=== PATIENT | female | born 1965 | race Two or more races ===

== ENCOUNTER 2024-08-31 01:39 | Day surgery (SDC) | payer BC, SELFPAY ==
[2024-08-28 08:33] VITALS: BMI 27.4
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
--- OUTSIDE RECORDS SUMMARY | 2024-08-31 01:43 | XMS_ITS | Clinical Summary ---
Author Organization [facility] Address [address] [place] [address] Care Team Providers Care Second Cutter Name Role Phone Jillian Vyas PA-C Primary Care Provider [phone] Allergies Active Allergy Reactions Criticality Noted Date Comments Prochlorperazine Other (see comment) 06/10/2020 Muscle tightness Medications gabapentin 100 MG capsule Take 100-300 mg by mouth daily. 05/27/19 21 Active venlafaxine XR 75 MG 24 hr capsule Take 75 mg by mouth daily. 05/06/19 21 Active sucralfate 1 G tablet Take 1 tablet (1 g total) by mouth 4 (four) times daily. 120 tablet 06/11/19 21 Active nirmatrelvir & ritonavir 300/100 (PAXLOVID, 300/100,) 20 x 150 MG & 10 x 100MG tablet pack Take TWO nirmatrelvir 150 mg tablet(s) along with ONE ritonavir 100 mg tablet, with all three tablets taken together, twice daily for 5 days. May take with or without food. Swallow tablets whole. Do not chew, break or crush.. 30 tablet 12/15/19 22 Active hydrOXYzine (ATARAX) 25 MG tablet Take 25 mg by mouth 3 (three) times daily as needed for Itching or Anxiety. 09/25/19 22 Active pantoprazole EC (PROTONIX) 40 MG tablet Take 40 mg by mouth daily. 12/15/19 22 Active butalbital-acetami nophen-caffeine (FIORICET) 50-300-40 MG capsule Take 1-2 capsules by mouth every 6 (six) hours as needed for Headaches. 28 capsule 12/21/19 22 Active ondansetron (ZOFRAN-ODT) 4 MG disintegrating tablet Take 1 tablet (4 mg total) by mouth every 4 (four) hours as needed for Nausea. 20 tablet 12/21/19 Active dextromethorphan ER (DELSYM) 30 MG/5ML liquid Take 5 mLs (30 mg total) by mouth every 12 (twelve) hours as needed (Cough and/or sore throat). 280 mL 12/21/19 Active diclofenac EC (VOLTAREN) 75 MG tablet Take 1 tablet (75 mg total) by mouth 2 (two) times daily as needed (Pain. Please take with meals). 30 tablet 12/21/19 Active Social History Tobacco Use Types Packs/Day Years Used Date Smoking Tobacco: Never Smokeless Tobacco: Never Alcohol Use Standard Drinks/Week Comments Not Currently 0 (1 standard drink = 0.6 oz pur e alcohol) Comments No Sex and Gender Information Value Date Recorded Sex Assigned at Not on file Legal Sex Female 8:00 PM CDT Gender Identity Not on file Sexual Orientation Not on file Last Filed Vital Signs Vital Sign Reading Time Taken Comments Blood Pressure 110/82 12/20/2021 3:00 AM CDT Pulse 77 12/20/2021 3:00 AM CDT Temperature 36.7 C (98 F) 12/20/2021 3:00 AM CDT Respiratory Rate 17 12/20/2021 3:00 AM CDT Oxygen Saturation 97% 12/20/2021 3:00 AM CDT Inhaled Oxygen Concentration - - Weight 70.3 kg (155 lb) 12/19/2021 7:36 PM CDT Height 157.5 cm (5' 2 ) 12/19/2021 7:36 PM CDT Body Mass Index 28.35 12/19/2021 7:36 PM CDT Plan of Treatment Health Maintenance Due Date Last Done Comments Cervical Cancer Screening Pa p Smear (Age 30 to 64) Every 3 Years 1967 Colorectal Cancer Screening Colonoscopy (10 Years) 1967 Annual Physical 12/14/1970 Hepatitis C 12/14/1985 DTaP, Tdap and Td Vaccines ( 1 - Tdap) 12/14/1986 Hepatitis B Vaccines (1 of 3 - 19+ 3-dose series) 12/14/1986 Cervical Cancer Screening Pa p with HPV Testing (Age 30 to 64) Every 5 Years 12/14/1997 Cervical Cancer Screening wi th HPV 12/14/1997 Mammogram Screening 2007 Pneumococcal Vaccine: 50+ Years (1 of 1 - PCV) 12/14/2017 Zoster Vaccines (1 of 2) 12/14/2017 COVID-19 Vaccine (3 - 2023-2 5 season) 2024 05/09/2020, 04/18/2020 Meningococcal B Vaccine Aged Out No l onger eligible based on patient's age to complete this topic Meningococcal Vaccine Aged Out No paula joseph eligible based on patient's age to complete this topic RSV Immunizations Under 20 Months Aged Out No longer eligible b ased on patient's age to complete this topic Insurance [facility] Care Teams Second Cutter Relationship Specialty Start Date End Date Jillian Vyas PA-C [address] [place] [id number] PCP - General NURSE PRACTITIONER 06/10/20
--- OUTSIDE RECORDS SUMMARY | 2024-08-31 01:43 | XMS_ITS | Data Portability ---
Author Organization [facility] Lary Funk Address [address] [place] [address] Care Team Providers Care Senior Customer Service Representative Name Role Phone GENTRYCYNTHIA FANG Primary Care Provider [phone] Assessment No assessment recorded. Plan of Treatment Reminders Order Date Submit Date Provider Last Modified By Organization Details Last Modified Time Details Appointments None recorded. Lab CMP, serum or plasma 2023 024 CHARLIE Lees, [address], [place], [address], 4 11:14:50 CBC w/ auto diff 2023 024 CHARLIE Lees, [address], [place], [address], 4 11:14:53 lipid panel, serum 2023 024 CHARLIE Lees, [address], [place], [address], 4 11:14:49 HbA1c (hemoglobin A1c), blood 2023 024 CHARLIE Lees, [address], [place], [address], 4 11:14:52 TSH + free T4, serum 2023 024 CHARLIE Lees, [address], [place], [address], 4 11:14:48 rapid strep group A, throat 2023 024 [email or web address] In-Office Order, Internal Use Only DO Not Attach Compendium DO Not Attach Compendium, Do Not Delete/merge, [id number] 4 17:30:48 vitamin B12 + folate, serum or blood [email or web address], [address], [address], [place], [address], 3 17:34:43 estradiol, serum 2022 023 [facility], [address], [place], [address], 3 17:35:30 lh + FSH, serum 2022 023 [facility], [address], [address], [place], [address], 3 17:35:31 progesteron e, serum 2022 023 [facility], [address], [place], [address], 3 17:35:31 prolactin, serum 2022 023 [facility], [address], [place], [address], 3 17:35:30 LINDA (antinuclea r antibodies) screen, serum 2022 023 [facility], [address], [place], [address], 3 17:35:30 vitamin B12 + folate, serum or blood 2021 022 [facility], [address], [place], [address], 09:32:06 CBC w/ auto diff 2021 [facility], [address], [place], [address], 09:32:04 PT/PTT, plasma 2021 [facility], [address], [place], [address], 09:32:06 iron + total iron-bindin g capacity (TIBC), serum 2021 [facility], [address], [place], [address], 09:37:54 HbA1c (hemoglobin A1c), blood 2021 [facility], [address], [place], [address], 09:32:07 CMP, serum or plasma 2021 [facility], [address], [place], [address], 09:32:05 Referral None recorded. Procedures None recorded. Surgeries None recorded. Imaging MAMMO, screening, bilateral [address] [place], [address] [address], [place], [address], 07:38:22 CT, coronary calcium score [address] Imaging [place], [address] [address], [place], [address], 5 08:00:52 MAMMO, screening, bilateral 2022 023 [facility] ing, [address], [place], [address], 3 17:43:45 XR, elbow, 2 view 2021 022 [facility] [address] [place], [address], 2 16:17:11 Medication Orders Zepbound 2.5 mg/0.5 mL subcutaneou s pen injector 2023 024 [facility]88198, [address], [place], [id number], 4 07:35:39 Zithromax Z-Bob 250 mg tablet [address] [facility]12742, [address], [place], [id number], 4 16:38:09 acetaminoph en 300 mg-codeine 30 mg tablet 2023 024 [facility] #17196, [address], [place], [id number], 4 17:35:55 alprazolam 0.25 mg tablet [address] [facility]57812, [address], [place], [id number], 2 08:42:04 hydroxyzine HCl 25 mg tablet [address] [facility] #54713, [address], [place], [id number], 4 16:50:43 permethrin 5 % topical cream 2021 022 [email or web address] [facility] #35050, [address] , [place], [place], [id number], 17:52:58 Patient TargetsNo targets recorded. Patient Instructions Encounter Date Encounter Id Patient Instructions Last Modified By Organization Details Last Modified Time 09/24/2021 [id number] elbow bursitis: exercises Not available 09/24/2021 17:45:39 04/04/2024 [id number] A healthy lifestyle: care instructions Not available 04/04/2024 17:14:37 Reason for Referral None Reported. Results Created Date Observation Date Name Description Value Unit Range Abnormal Flag Note LastModifiedBy Organization Detail LastModifiedTime 09/26/19 22 10/02/2021 CBC WITH DIFFE RENTI AL/PL ATELE T WBC TNP x10e3 /uL Test not perfo rmed. Speci men could not be locat ed. Conta cted Pablo Regan, Nurse , at your [facility] 2 Not Available [facility] ([facility]) [address] [place], [address], 10/02/2021 09:32:04 09/26/19 22 10/02/2021 CBC WITH DIFFE RENTI AL/PL ATELE T RBC TNP Test not perfo rmed Not Available [facility] ([facility]) [address] [place], [address], 10/02/2021 09:32:04 09/26/19 22 10/02/2021 CBC WITH DIFFE RENTI AL/PL ATELE T hemoglobin TNP Test not perfo rmed Not Available [facility] ([facility]) [address] [place], [address], 10/02/2021 09:32:04 09/26/19 22 10/02/2021 CBC WITH DIFFE RENTI AL/PL ATELE T hematocrit TNP Test not perfo rmed Not Available [facility] ([facility]) [address] [place], [address], 10/02/2021 09:32:04 09/26/19 22 10/02/2021 CBC WITH DIFFE RENTI AL/PL ATELE T MCV FINANCIAL ANALYST ACCOUNTANT Not Available [facility] ([facility]) [address] [facility], [place], [address], 10/02/2021 09:32:04 09/26/19 22 10/02/2021 CBC WITH DIFFE RENTI AL/PL ATELE T MCH FINANCIAL ANALYST ACCOUNTANT Not Available [facility] ([facility]) [address] [facility], [place], [address], 10/02/2021 09:32:04 09/26/19 22 10/02/2021 CBC WITH DIFFE RENTI AL/PL ATELE T MCHC FINANCIAL ANALYST ACCOUNTANT Not Available [facility] ([facility]) [address] [facility], [place], [address], 10/02/2021 09:32:04 09/26/19 22 10/02/2021 CBC WITH DIFFE RENTI AL/PL ATELE T RDW FINANCIAL ANALYST ACCOUNTANT Not Available [facility] ([facility]) [address] [facility], [place], [address], 10/02/2021 09:32:04 09/26/19 22 10/02/2021 CBC WITH DIFFE RENTI AL/PL ATELE T platelets TNP Test not perfo rmed Not Available [facility] ([facility]) [address] [facility], [place], [address], 10/02/2021 09:32:04 09/26/19 22 10/02/2021 CBC WITH DIFFE RENTI AL/PL ATELE T neutrophils TNP Test not perfo rmed Not Available [facility] ([facility]) [address] [facility], [place], [address], 10/02/2021 09:32:04 09/26/19 22 10/02/2021 CBC WITH DIFFE RENTI AL/PL ATELE T lymphs TNP Test not perfo rmed Not Available [facility] ([facility]) [address] [place], [address], 10/02/2021 09:32:04 09/26/19 22 10/02/2021 CBC WITH DIFFE RENTI AL/PL ATELE T monocytes TNP Test not perfo rmed Not Available [facility] ([facility]) [address] [facility], [place], [address], 10/02/2021 09:32:04 09/26/19 22 10/02/2021 CBC WITH DIFFE RENTI AL/PL ATELE T eos TNP Test not perfo rmed Not Available [facility] ([facility]) [address] [place], [address], 10/02/2021 09:32:04 09/26/19 22 10/02/2021 CBC WITH DIFFE RENTI AL/PL ATELE T basos FINANCIAL ANALYST ACCOUNTANT Not Available [facility] ([facility]) [address] [place], [address], 10/02/2021 09:32:04 09/26/19 22 10/02/2021 CBC WITH DIFFE RENTI AL/PL ATELE T immature cells FINANCIAL ANALYST ACCOUNTANT Not Available [facility] ([facility]) [address] [place], [address], 10/02/2021 09:32:04 09/26/19 22 10/02/2021 CBC WITH DIFFE RENTI AL/PL ATELE T neutrophils (absolute) FINANCIAL ANALYST ACCOUNTANT Not Available [facility] ([facility]) [address] [place], [address], 10/02/2021 09:32:04 09/26/19 22 10/02/2021 CBC WITH DIFFE RENTI AL/PL ATELE T lymphs (absolute) TNP Test not perfo rmed Not Available [facility] ([facility]) [address] [place], [address], 10/02/2021 09:32:04 09/26/19 22 10/02/2021 CBC WITH DIFFE RENTI AL/PL ATELE T monocytes(ab solute) FINANCIAL ANALYST ACCOUNTANT Not Available [facility] ([facility]) [address] [facility], [place], [address], 10/02/2021 09:32:04 09/26/19 22 10/02/2021 CBC WITH DIFFE RENTI AL/PL ATELE T eos (absolute) TNP Test not perfo rmed Not Available [facility] ([facility]) [address] [place], [address], 10/02/2021 09:32:04 09/26/19 22 10/02/2021 CBC WITH DIFFE RENTI AL/PL ATELE T baso (absolute) TNP Test not perfo rmed Not Available [facility] ([facility]) [address] [place], [address], 10/02/2021 09:32:04 09/26/19 22 10/02/2021 CBC WITH DIFFE RENTI AL/PL ATELE T immature granulocytes FINANCIAL ANALYST ACCOUNTANT Not Available [facility] ([facility]) [address] [place], [address], 10/02/2021 09:32:04 09/26/19 22 10/02/2021 CBC WITH DIFFE RENTI AL/PL ATELE T immature grans (abs) FINANCIAL ANALYST ACCOUNTANT Not Available [facility]) [address] [place], [address], 10/02/2021 09:32:04 09/26/19 22 10/02/2021 CBC WITH DIFFE RENTI AL/PL ATELE T NRBC FINANCIAL ANALYST ACCOUNTANT Not Available [facility] ([facility]) [address] [place], [address], 10/02/2021 09:32:04 09/26/19 22 10/02/2021 CBC WITH DIFFE RENTI AL/PL CARMEN Song hematology comments: FINANCIAL ANALYST ACCOUNTANT Not Available [facility] ([facility]) [address] [facility], [place], [address], 10/02/2021 09:32:04 09/26/19 22 10/02/2021 COMP. METAB OLIC PANEL (14) glucose TNP mg/dL Test not perfo rmed. Speci men could not be locat ed. Conta cted Pablo Regan, Nurse , at your [facility] it 2 Not Available [facility] ([facility]) [address] [facility], [place], [address], 10/02/2021 09:32:05 09/26/19 22 10/02/2021 COMP. METAB OLIC PANEL (14) BUN TNP Test not perfo rmed Not Available [facility] ([facility]) [address] [facility], [place], [address], 10/02/2021 09:32:05 09/26/19 22 10/02/2021 COMP. METAB OLIC PANEL (14) creatinine TNP Test not perfo rmed Not Available [facility] ([facility]) [address] [facility], [place], [address], 10/02/2021 09:32:05 09/26/19 22 10/02/2021 COMP. METAB OLIC PANEL (14) eGFR FINANCIAL ANALYST ACCOUNTANT Not Available [facility] ([facility]) [address] [place], [address], 10/02/2021 09:32:05 09/26/19 22 10/02/2021 COMP. METAB OLIC PANEL (14) BUN/creatini ne ratio FINANCIAL ANALYST ACCOUNTANT Not Available [facility] ([facility]) [address] [place], [address], 10/02/2021 09:32:05 09/26/19 22 10/02/2021 COMP. METAB OLIC PANEL (14) sodium TNP Test not perfo rmed Not Available [facility] ([facility]) [address], [place], [address], 10/02/2021 09:32:05 09/26/19 22 10/02/2021 COMP. METAB OLIC PANEL (14) potassium TNP Test not perfo rmed Not Available [facility] ([facility]) [address], [place], [address], 10/02/2021 09:32:05 09/26/19 22 10/02/2021 COMP. METAB OLIC PANEL (14) chloride TNP Test not perfo rmed Not Available [facility] ([facility]) [address], [place], [address], 10/02/2021 09:32:05 09/26/19 22 10/02/2021 COMP. METAB OLIC PANEL (14) carbon dioxide, total TNP Test not perfo rmed Not Available [facility] ([facility]) [address], [place], [address], 10/02/2021 09:32:05 09/26/19 22 10/02/2021 COMP. METAB OLIC PANEL (14) calcium TNP Test not perfo rmed Not Available [facility] ([facility]) [address], [place], [address], 10/02/2021 09:32:05 09/26/19 22 10/02/2021 COMP. METAB OLIC PANEL (14) protein, total TNP Test not perfo rmed Not Available [facility] ([facility]) [address], [place], [address], 10/02/2021 09:32:05 09/26/19 22 10/02/2021 COMP. METAB OLIC PANEL (14) albumin TNP Test not perfo rmed Not Available [facility] ([facility]) [address], [place], [address], 10/02/2021 09:32:05 09/26/19 22 10/02/2021 COMP. METAB OLIC PANEL (14) globulin, total FINANCIAL ANALYST ACCOUNTANT Not Available [facility] ([facility]) [address] [facility] [place], [address], 10/02/2021 09:32:05 09/26/19 22 10/02/2021 COMP. METAB OLIC PANEL (14) A/G ratio FINANCIAL ANALYST ACCOUNTANT Not Available [facility] ([facility]) [address] [facility], [place], [address], 10/02/2021 09:32:05 09/26/19 22 10/02/2021 COMP. METAB OLIC PANEL (14) bilirubin, total TNP Test not perfo rmed Not Available [facility] ([facility]) [address] [facility], [place], [address], 10/02/2021 09:32:05 09/26/19 22 10/02/2021 COMP. METAB OLIC PANEL (14) alkaline phosphatase TNP Test not perfo rmed Not Available [facility] ([facility]) [address] [facility] [place], [address], 10/02/2021 09:32:05 09/26/19 22 10/02/2021 COMP. METAB OLIC PANEL (14) AST (SGOT) TNP Test not perfo rmed Not Available [facility] ([facility]) [address] [place], [address], 10/02/2021 09:32:05 09/26/19 22 10/02/2021 COMP. METAB OLIC PANEL (14) ALT (SGPT) TNP Test not perfo rmed Not Available [facility] ([facility]) [address] [facility] [place], [address], 10/02/2021 09:32:05 09/26/19 22 10/02/2021 PT AND PTT INR TNP Test not perfo rmed. Speci men could not be locat ed. Conta cted Pablo M., Nurse , at your facil ity 2 Refer ence inter marilyn is for non-a ntico agula avery patie nts. Sugge sted INR thera peuti c range for Vitam in K antag onist thera py: Stand manpreet Dose (mode rate inten sity thera peuti c range ): 2.0 - 3.0 Highe r inten sity thera peuti c range 2.5 - 3.5 Not Available [facility] ([facility]) [address] [facility], [place], [address], 10/02/2021 09:32:06 09/26/19 22 10/02/2021 PT AND PTT prothrombin time TNP Test not perfo rmed Not Available [facility] ([facility]) [address] [facility], [place], [address], 10/02/2021 09:32:06 09/26/19 22 10/02/2021 PT AND PTT APTT TNP Test not perfo rmed Not Available [facility] ([facility]) [address] [facility], [place], [address], 10/02/2021 09:32:06 09/26/19 22 10/02/2021 VITAM IN B12 AND FOLAT E vitamin B12 TNP pg/mL Test not perfo rmed. Speci men could not be locat ed. Lupe Regan, Nurse , at your facil ity 2 Not Available [facility] ([facility]) [address] [facility], [place], [address], 10/02/2021 09:32:06 09/26/19 22 10/02/2021 VITAM IN B12 AND FOLAT E folate (folic acid), serum TNP Test not perfo rmed Not Available [facility] ([facility]) [address] [place], [address], 10/02/2021 09:32:06 09/26/19 22 10/02/2021 HEMOG LOBIN A1C hemoglobin A1C TNP % Test not perfo rmed. Speci men could not be locat ed. Lupe Regan, Nurse , at your facil ity 2 Predi abete s: 5.7 - 6.4 Diabe mary kay: >6.4 Glyce ghassan contr ol for adult s with diabe mary kay: <7.0 Not Available [facility] ([facility]) [address] [facility], [place], [address], 10/02/2021 09:32:07 09/26/19 22 10/02/2021 SPECI MEN STATU S REPOR T specimen status report TNP Test not perfo rmed. Speci men could not be locat ed. TEST: [id number] CBC With Diffe renti al/Pl [place]ele t 0[address] 0 Comp. Metab olic Panel (14) 40388 1 Iron and TIBC 13503 1 PT and PTT 41496 0 Vitam in B12 [place] Folat e 49819 3 Hemog lobin A1c Ramóna tanner Regan, Nurse , at your facil ity 2 Not Available [facility] ([facility]) [address] [facility], [place], [address], 10/02/2021 09:32:08 10/03/19 22 10/03/2021 CBC WITH DIFFE RENTI AL/PL ATELE T WBC 6.6 x10e3 /uL 3.4-10 .8 Not Available [facility] ([facility]) [address] [facility], [place], [address], 10/03/2021 09:37:53 10/03/19 22 10/03/2021 CBC WITH DIFFE RENTI AL/PL ATELE T RBC 4.99 x10e6 /uL 3.77-5 .28 Not Available [facility] ([facility]) [address] [facility], [place], [address], 10/03/2021 09:37:53 10/03/19 22 10/03/2021 CBC WITH DIFFE RENTI AL/PL ATELE T hemoglobin 14.3 g/dL 11.1-1 5.9 Not Available [facility] ([facility]) [address] [place], [address], 10/03/2021 09:37:53 10/03/19 22 10/03/2021 CBC WITH DIFFE RENTI AL/PL ATELE T hematocrit 42.7 % 34.0-4 6.6 Not Available [facility] ([facility]) [address] [place], [address], 10/03/2021 09:37:53 10/03/19 22 10/03/2021 CBC WITH DIFFE RENTI AL/PL ATELE T MCV 86 fL 79-97 Not Available [facility] ([facility]) [address] [place], [address], 10/03/2021 09:37:53 10/03/19 22 10/03/2021 CBC WITH DIFFE RENTI AL/PL ATELE T MCH 28.7 pg 26.6-3 3.0 Not Available [facility] ([facility]) [address] [place], [address], 10/03/2021 09:37:53 10/03/19 22 10/03/2021 CBC WITH DIFFE RENTI AL/PL ATELE T MCHC 33.5 g/dL 31.5-3 5.7 Not Available [facility] ([facility]) [address] [place], [address], 10/03/2021 09:37:53 10/03/19 22 10/03/2021 CBC WITH DIFFE RENTI AL/PL ATELE T RDW 12.7 % 11.7-1 5.4 Not Available [facility] ([facility]) [address] [place], [address], 10/03/2021 09:37:53 10/03/19 22 10/03/2021 CBC WITH DIFFE RENTI AL/PL ATELE T platelets 239 x10e3 /uL 150-45 0 Not Available [facility] ([facility]) [address] [facility], [place], [address], 10/03/2021 09:37:53 10/03/19 22 10/03/2021 CBC WITH DIFFE RENTI AL/PL ATELE T neutrophils 50 % not estab. Not Available [facility] ([facility]) [address] [facility], [place], [address], 10/03/2021 09:37:53 10/03/19 22 10/03/2021 CBC WITH DIFFE RENTI AL/PL ATELE T lymphs 43 % not estab. Not Available [facility] ([facility]) [address] [facility], [place], [address], 10/03/2021 09:37:53 10/03/19 22 10/03/2021 CBC WITH DIFFE RENTI AL/PL ATELE T monocytes 5 % not estab. Not Available [facility] ([facility]) [address] [facility], [place], [address], 10/03/2021 09:37:53 10/03/19 22 10/03/2021 CBC WITH DIFFE RENTI AL/PL ATELE T eos 1 % not estab. Not Available [facility] ([facility]) [address] [facility], [place], [address], 10/03/2021 09:37:53 10/03/19 22 10/03/2021 CBC WITH DIFFE RENTI AL/PL ATELE T basos 1 % not estab. Not Available [facility] ([facility]) [address] [place], [address], 10/03/2021 09:37:53 10/03/19 22 10/03/2021 CBC WITH DIFFE RENTI AL/PL ATELE T immature cells FINANCIAL ANALYST ACCOUNTANT Not Available [facility] ([facility]) [address] [facility], [place], [address], 10/03/2021 09:37:53 10/03/19 22 10/03/2021 CBC WITH DIFFE RENTI AL/PL ATELE T neutrophils (absolute) 3.3 x10e3 /uL 1.4-7. 0 Not Available [facility] ([facility]) [address] [facility], [place], [address], 10/03/2021 09:37:53 10/03/19 22 10/03/2021 CBC WITH DIFFE RENTI AL/PL ATELE T lymphs (absolute) 2.8 x10e3 /uL 0.7-3. 1 Not Available [facility] ([facility]) [address] [facility], [place], [address], 10/03/2021 09:37:53 10/03/19 22 10/03/2021 CBC WITH DIFFE RENTI AL/PL ATELE T monocytes(ab solute) 0.3 x10e3 /uL 0.1-0. 9 Not Available [facility] ([facility]) [address] [facility], [place], [address], 10/03/2021 09:37:53 10/03/19 22 10/03/2021 CBC WITH DIFFE RENTI AL/PL ATELE T eos (absolute) 0.1 x10e3 /uL 0.0-0. 4 Not Available [facility] ([facility]) [address] [facility], [place], [address], 10/03/2021 09:37:53 10/03/19 22 10/03/2021 CBC WITH DIFFE RENTI AL/PL ATELE T baso (absolute) 0.1 x10e3 /uL 0.0-0. 2 Not Available [facility] ([facility]) [address] [place], [address], 10/03/2021 09:37:53 10/03/19 22 10/03/2021 CBC WITH DIFFE RENTI AL/PL ATELE T immature granulocytes 0 % not estab. Not Available [facility] ([facility]) [address] [facility], [place], [address], 10/03/2021 09:37:53 10/03/19 22 10/03/2021 CBC WITH DIFFE RENTI AL/PL ATELE T immature grans (abs) 0.0 x10e3 /uL 0.0-0. 1 Not Available [facility] ([facility]) [address] [facility], [place], [address], 10/03/2021 09:37:53 10/03/19 22 10/03/2021 CBC WITH DIFFE RENTI AL/PL ATELE T NRBC FINANCIAL ANALYST ACCOUNTANT Not Available [facility] ([facility]) [address] [facility], [place], [address], 10/03/2021 09:37:53 10/03/19 22 10/03/2021 CBC WITH DIFFE RENTI AL/PL ATELE T hematology comments: FINANCIAL ANALYST ACCOUNTANT Not Available [facility] ([facility]) [address] [facility], [place], [address], 10/03/2021 09:37:53 10/03/19 22 10/03/2021 COMP. METAB OLIC PANEL (14) glucose 126 mg/dL 65-99 above high normal Not Available [facility] ([facility]) [address] [facility], [place], [address], 10/03/2021 09:37:54 10/03/19 22 10/03/2021 COMP. METAB OLIC PANEL (14) BUN 13 mg/dL 6-24 Not Available [facility] ([facility]) [address] [facility], [place], [address], 10/03/2021 09:37:54 10/03/19 22 10/03/2021 COMP. METAB OLIC PANEL (14) creatinine 0.75 mg/dL 0.57-1 .00 Not Available [facility] ([facility]) [address] [facility], [place], [address], 10/03/2021 09:37:54 10/03/19 22 10/03/2021 COMP. METAB OLIC PANEL (14) eGFR 95 mL/mi n/1.7 3 >59 Not Available [facility] ([facility]) [address] [facility], [place], [address], 10/03/2021 09:37:54 10/03/19 22 10/03/2021 COMP. METAB OLIC PANEL (14) BUN/creatini ne ratio 17 9-23 Not Available [facility] ([facility]) [address] [facility], [place], [address], 10/03/2021 09:37:54 10/03/19 22 10/03/2021 COMP. METAB OLIC PANEL (14) sodium 142 mmol/ L 134-14 4 Not Available [facility] ([facility]) [address] [place], [address], 10/03/2021 09:37:54 10/03/19 22 10/03/2021 COMP. METAB OLIC PANEL (14) potassium 4.2 mmol/ L 3.5-5. 2 Not Available [facility] ([facility]) [address] [facility], [place], [address], 10/03/2021 09:37:54 10/03/19 22 10/03/2021 COMP. METAB OLIC PANEL (14) chloride 105 mmol/ L 96-106 Not Available [facility] ([facility]) [address] [place], [address], 10/03/2021 09:37:54 10/03/19 22 10/03/2021 COMP. METAB OLIC PANEL (14) carbon dioxide, total 24 mmol/ L 20-29 Not Available [facility] ([facility]) [address] [place], [address], 10/03/2021 09:37:54 10/03/19 22 10/03/2021 COMP. METAB OLIC PANEL (14) calcium 9.5 mg/dL 8.7-10 .2 Not Available [facility] ([facility]) [address] [facility] [place], [address], 10/03/2021 09:37:54 10/03/19 22 10/03/2021 COMP. METAB OLIC PANEL (14) protein, total 7.5 g/dL 6.0-8. 5 Not Available [facility] ([facility]) [address] [facility] [place], [address], 10/03/2021 09:37:54 10/03/19 22 10/03/2021 COMP. METAB OLIC PANEL (14) albumin 4.7 g/dL 3.8-4. 9 Not Available [facility] ([facility]) [address] [place], [address], 10/03/2021 09:37:54 10/03/19 22 10/03/2021 COMP. METAB OLIC PANEL (14) globulin, total 2.8 g/dL 1.5-4. 5 Not Available [facility] ([facility]) [address] [facility] [place], [address], 10/03/2021 09:37:54 10/03/19 22 10/03/2021 COMP. METAB OLIC PANEL (14) A/G ratio 1.7 1.2-2. 2 Not Available [facility] ([facility]) [address] [facility] [place], [address], 10/03/2021 09:37:54 10/03/19 22 10/03/2021 COMP. METAB OLIC PANEL (14) bilirubin, total 0.2 mg/dL 0.0-1. 2 Not Available [facility] ([facility]) [address] [facility] [place], [address], 10/03/2021 09:37:54 10/03/19 22 10/03/2021 COMP. METAB OLIC PANEL (14) alkaline phosphatase 100 IU/L 44-121 Not Available [facility] ([facility]) [address] [place], [address], 10/03/2021 09:37:54 10/03/19 22 10/03/2021 COMP. METAB OLIC PANEL (14) AST (SGOT) 24 IU/L 0-40 Not Available [facility] ([facility]) [address] [place], [address], 10/03/2021 09:37:54 10/03/19 22 10/03/2021 COMP. METAB OLIC PANEL (14) ALT (SGPT) 32 IU/L 0-32 Not Available [facility] ([facility]) [address] [place], [address], 10/03/2021 09:37:54 10/03/19 22 10/03/2021 IRON AND TIBC iron bind.cap.(TI BC) 387 ug/dL 250-45 0 Not Available [facility] ([facility]) [address] [place], [address], 10/03/2021 09:37:54 10/03/19 22 10/03/2021 IRON AND TIBC UIBC 318 ug/dL 131-42 5 Not Available [facility] ([facility]) [address] [place], [address], 10/03/2021 09:37:54 10/03/19 22 10/03/2021 IRON AND TIBC iron 69 ug/dL 27-159 Not Available [facility] ([facility]) [address] [place], [address], 10/03/2021 09:37:54 10/03/19 22 10/03/2021 IRON AND TIBC iron saturation 18 % 15-55 Not Available [facility] ([facility]) [address] [place], [address], 10/03/2021 09:37:54 10/03/19 22 10/03/2021 PT AND PTT INR 0.9 0.9-1. 2 Refer ence inter marilyn is for non-a ntico agula avery patie nts. Sugge sted INR thera peuti c range for Vitam in K antag onist thera py: Stand manpreet Dose (mode rate inten sity thera peuti c range ): 2.0 - 3.0 Highe r inten sity thera peuti c range 2.5 - 3.5 Not Available [facility] ([facility]) [address] [place], [address], 10/03/2021 09:37:55 10/03/19 22 10/03/2021 PT AND PTT prothrombin time 9.9 sec 9.1-12 .0 Not Available [facility] ([facility]) [address] [place], [address], 10/03/2021 09:37:55 10/03/19 22 10/03/2021 PT AND PTT APTT 40 sec 24-33 above high normal This test has not been valid ated for monit oring unfra ction ated hepar in thera py. aPTT- based thera peuti c range s for unfra ction ated hepar in thera py have not been estab michelle Butler gener al guide lines on Hepar in monit oring , refer to the [facility] Anu snowden of Nomi alvarado. Not Available [facility] ([facility]) [address] [place], [address], 10/03/2021 09:37:55 10/03/19 22 10/03/2021 VITAM IN B12 AND FOLAT E vitamin B12 349 pg/mL 232-12 45 Not Available [facility] ([facility]) [address] [place], [address], 10/03/2021 09:37:55 10/03/19 22 10/03/2021 VITAM IN B12 AND FOLAT E folate (folic acid), serum 11.5 NG/mL >3.0 A serum folat e tirso ntrat ion of less than 3.1 ng/mL is consi dered to repre sent clini heraclio defic iency . Not Available [facility] ([facility]) [address] [facility] [address], [place], [address], 10/03/2021 09:37:55 10/03/19 22 10/03/2021 HEMOG LOBIN A1C hemoglobin A1C 5.8 % 4.8-5. 6 above high normal Predi abete s: 5.7 - 6.4 Diabe mary kay: >6.4 Glyce ghassan contr ol for adult s with diabe mary kay: <7.0 Not Available [facility] ([facility]) [address] [facility] [address], [place], [address], 10/03/2021 09:37:56 12/24/19 23 12/24/2022 LIPID PANEL cholesterol, total 197 mg/dL 100-19 9 Not Available [facility] [address] [place], [address], 12/24/2022 18:11:23 12/24/19 23 12/24/2022 LIPID PANEL triglyceride s 92 mg/dL 0-149 Not Available [facility] [address] [place], [address], 12/24/2022 18:11:23 12/24/19 23 12/24/2022 LIPID PANEL HDL cholesterol 69 mg/dL 40-999 Not Available [facility] [address] [place], [address], 12/24/2022 18:11:23 12/24/19 23 12/24/2022 LIPID PANEL VLDL cholesterol heraclio 18 mg/dL 5-40 Not Available [facility] [address] [place], [address], 12/24/2022 18:11:23 12/24/19 23 12/24/2022 LIPID PANEL LDL chol calc ([facility]) 122 mg/dL 0-99 above high normal Not Available [facility] [address] [place], [address], 12/24/2022 18:11:23 12/24/19 23 12/24/2022 COMP. METAB OLIC PANEL (14) glucose 115 mg/dL 70-99 above high normal Not Available [facility] [address] [place], [address], 12/24/2022 18:11:23 12/24/19 23 12/24/2022 COMP. METAB OLIC PANEL (14) BUN 13 mg/dL 6-24 Not Available [facility] [address] [place], [address], 12/24/2022 18:11:23 12/24/19 23 12/24/2022 COMP. METAB OLIC PANEL (14) creatinine 0.67 mg/dL 0.76-1 .27 below low normal Not Available [facility] [address] [place] [address], [address], 12/24/2022 18:11:23 12/24/19 23 12/24/2022 COMP. METAB OLIC PANEL (14) eGFR 103 >=60 Units for eGFR value s are mL/mi n/1.7 3 The eGFR Calcu latio n has not been valid ated for patie nts under the age of 18. If test resul ts are displ ayed for a patie nt under the age of 18, disre willow that value . Not Available [facility] [address] [place], [address], 12/24/2022 18:11:23 12/24/19 23 12/24/2022 COMP. METAB OLIC PANEL (14) BUN/creatini ne ratio 19 - Not Available [facility] [address] [place], [address], 12/24/2022 18:11:23 12/24/19 23 12/24/2022 COMP. METAB OLIC PANEL (14) sodium 139 mmol/ L 134-14 4 Not Available [facility] [address] [place], [address], 12/24/2022 18:11:23 12/24/19 23 12/24/2022 COMP. METAB OLIC PANEL (14) potassium 4.2 mmol/ L 3.5-5. 2 Not Available [facility] [address] [place], [address], 12/24/2022 18:11:23 12/24/19 23 12/24/2022 COMP. METAB OLIC PANEL (14) chloride 104 mmol/ L 96-106 Not Available [facility] [address] [place], [address], 12/24/2022 18:11:23 12/24/19 23 12/24/2022 COMP. METAB OLIC PANEL (14) carbon dioxide, total 26 mmol/ L 20-29 Not Available [facility] [address] [place], [address], 12/24/2022 18:11:23 12/24/19 23 12/24/2022 COMP. METAB OLIC PANEL (14) calcium 8.8 mg/dL 8.7-10 .2 Not Available [facility] [address] [place], [address], 12/24/2022 18:11:23 12/24/19 23 12/24/2022 COMP. METAB OLIC PANEL (14) protein, total 7.1 g/dL 6.0-8. 5 Not Available [facility] [address] [place], [address], 12/24/2022 18:11:23 12/24/19 23 12/24/2022 COMP. METAB OLIC PANEL (14) albumin 4.4 g/dL 3.8-4. 9 Not Available [facility] [address] [place], [address], 12/24/2022 18:11:23 12/24/19 23 12/24/2022 COMP. METAB OLIC PANEL (14) globulin, total 2.7 g/dL 1.5-4. 5 Not Available [facility] [address] [place], [address], 12/24/2022 18:11:23 12/24/19 23 12/24/2022 COMP. METAB OLIC PANEL (14) A/G ratio 2.0 1.2-2. 2 Not Available [facility] [address] [place] [address], [address], 12/24/2022 18:11:23 12/24/19 23 12/24/2022 COMP. METAB OLIC PANEL (14) bilirubin, total 0.3 mg/dL 0.0-1. 2 Not Available [facility] [address] [place], [address], 12/24/2022 18:11:23 12/24/19 23 12/24/2022 COMP. METAB OLIC PANEL (14) alkaline phosphatase 77 IU/L 44-121 Not Available [facility] [address] [place], [address], 12/24/2022 18:11:23 12/24/19 23 12/24/2022 COMP. METAB OLIC PANEL (14) AST (SGOT) 16 IU/L 0-40 Not Available [facility] Department [address] [place] [address], [address], 12/24/2022 18:11:23 12/24/19 23 12/24/2022 COMP. METAB OLIC PANEL (14) ALT (SGPT) 14 IU/L 0-32 Not Available [facility] Department [address] [place] [address], [address], 12/24/2022 18:11:23 12/25/19 23 12/25/2022 TSH+F REE T4 TSH 0.850 uIU/m L 0.450- 4.500 Not Available [facility] ([facility]) [address] [place], [address], 12/25/2022 08:20:42 12/25/1912/25/2022 TSH+F REE T4 T4,free(dire ct) 1.29 NG/dL 0.82-1 .77 Not Available [facility] ([facility]) [address] [place], [address], 12/25/2022 08:20:42 12/25/1912/25/2022 HEMOG LOBIN A1C hemoglobin A1C 5.7 % 4.8-5. 6 above high normal Predi abete s: 5.7 - 6.4 Diabe mary kay: >6.4 Glyce ghassan contr ol for adult s with diabe mary kay: <7.0 Not Available [facility] ([facility]) [address] [facility] [address], [place], [address], 12/25/2022 08:20:43 07/07/1907/07/2023 rapid strep group A, throa t Strep positi ve Not Available In-Office Order Internal Use Only DO Not Attach Compendium DO Not Attach Compendium, Do Not Delete/merge, [id number] 07/07/2023 17:25:57 04/04/20 24 04/06/2024 TSH+F REE T4 TSH 1.560 uIU/m L 0.450- 4.500 Not Available [facility] ([facility]) [address] [place], [address], 04/06/2024 11:14:48 04/04/20 24 04/06/2024 TSH+F REE T4 T4,free(dire ct) 1.07 NG/dL 0.82-1 .77 Not Available [facility] ([facility]) [address] [place], [address], 04/06/2024 11:14:48 04/04/20 24 04/06/2024 LIPID PANEL cholesterol, total 250 mg/dL 100-19 9 above high normal Not Available [facility] ([facility]) [address] [facility] [place], [address], 04/06/2024 11:14:49 04/04/20 24 04/06/2024 LIPID PANEL triglyceride s 101 mg/dL 0-149 Not Available [facility] ([facility]) [address] [facility] [place], [address], 04/06/2024 11:14:49 04/04/20 24 04/06/2024 LIPID PANEL HDL cholesterol 71 mg/dL >39 Not Available [facility] ([facility]) [address] [facility] [place], [address], 04/06/2024 11:14:49 04/04/20 24 04/06/2024 LIPID PANEL VLDL cholesterol heraclio 17 mg/dL 5-40 Not Available [facility] ([facility]) [address] [place], [address], 04/06/2024 11:14:49 04/04/20 24 04/06/2024 LIPID PANEL LDL chol calc ([facility]) 162 mg/dL 0-99 above high normal Not Available [facility] ([facility]) [address] [place], [address], 04/06/2024 11:14:49 04/04/20 24 04/06/2024 COMP. METAB OLIC PANEL (14) glucose 101 mg/dL 70-99 above high normal Not Available [facility] ([facility]) [address] [place], [address], 04/06/2024 11:14:50 04/04/20 24 04/06/2024 COMP. METAB OLIC PANEL (14) BUN 14 mg/dL 6-24 Not Available [facility] ([facility]) [address] [place], [address], 04/06/2024 11:14:50 04/04/20 24 04/06/2024 COMP. METAB OLIC PANEL (14) creatinine 0.79 mg/dL 0.57-1 .00 Not Available [facility] ([facility]) [address] [place], [address], 04/06/2024 11:14:50 04/04/20 24 04/06/2024 COMP. METAB OLIC PANEL (14) eGFR 88 mL/mi n/1.7 3 >59 Not Available [facility] ([facility]) [address] [place], [address], 04/06/2024 11:14:50 04/04/20 24 04/06/2024 COMP. METAB OLIC PANEL (14) BUN/creatini ne ratio 18 9-23 Not Available [facility] ([facility]) [address] [place], [address], 04/06/2024 11:14:50 04/04/20 24 04/06/2024 COMP. METAB OLIC PANEL (14) sodium 139 mmol/ L 134-14 4 Not Available [facility] ([facility]) [address] [place], [address], 04/06/2024 11:14:50 04/04/20 24 04/06/2024 COMP. METAB OLIC PANEL (14) potassium 4.5 mmol/ L 3.5-5. 2 Not Available [facility] ([facility]) [address] [place], [address], 04/06/2024 11:14:50 04/04/20 24 04/06/2024 COMP. METAB OLIC PANEL (14) chloride 98 mmol/ L 96-106 Not Available [facility] ([facility]) [address] [place], [address], 04/06/2024 11:14:50 04/04/20 24 04/06/2024 COMP. METAB OLIC PANEL (14) carbon dioxide, total 26 mmol/ L 20-29 Not Available [facility] ([facility]) [address] [place], [address], 04/06/2024 11:14:50 04/04/20 24 04/06/2024 COMP. METAB OLIC PANEL (14) calcium 10.4 mg/dL 8.7-10 .2 above high normal Not Available [facility] ([facility]) [address] [facility] [address], [place], [address], 04/06/2024 11:14:50 04/04/20 24 04/06/2024 COMP. METAB OLIC PANEL (14) protein, total 7.1 g/dL 6.0-8. 5 Not Available [facility] ([facility]) [address] [facility] [place], [address], 04/06/2024 11:14:50 04/04/20 24 04/06/2024 COMP. METAB OLIC PANEL (14) albumin 4.6 g/dL 3.8-4. 9 Not Available [facility] ([facility]) [address] [facility], [place], [address], 04/06/2024 11:14:50 04/04/20 24 04/06/2024 COMP. METAB OLIC PANEL (14) globulin, total 2.5 g/dL 1.5-4. 5 Not Available [facility] ([facility]) [address] [facility] [place], [address], 04/06/2024 11:14:50 04/04/20 24 04/06/2024 COMP. METAB OLIC PANEL (14) bilirubin, total 0.2 mg/dL 0.0-1. 2 Not Available [facility] ([facility]) [address] [facility] [place], [address], 04/06/2024 11:14:50 04/04/20 24 04/06/2024 COMP. METAB OLIC PANEL (14) alkaline phosphatase 83 IU/L 44-121 Not Available [facility] ([facility]) [address] [facility] [place], [address], 04/06/2024 11:14:50 04/04/20 24 04/06/2024 COMP. METAB OLIC PANEL (14) AST (SGOT) 19 IU/L 0-40 Not Available [facility] ([facility]) [address] [facility], [place], [address], 04/06/2024 11:14:50 04/04/20 24 04/06/2024 COMP. METAB OLIC PANEL (14) ALT (SGPT) 19 IU/L 0-32 Not Available [facility] ([facility]) [address] [facility], [place], [address], 04/06/2024 11:14:50 04/04/20 24 04/06/2024 HEMOG LOBIN A1C hemoglobin A1C 5.7 % 4.8-5. 6 above high normal Predi abete s: 5.7 - 6.4 Diabe mary kay: >6.4 Glyce ghassan contr ol for adult s with diabe mary kay: <7.0 Not Available [facility] ([facility]) [address] [facility], [place], [address], 04/06/2024 11:14:52 04/04/20 24 04/06/2024 CBC WITH DIFFE RENTI AL/PL ATELE T WBC 7.6 x10e3 /uL 3.4-10 .8 Not Available [facility] ([facility]) [address] [facility], [place], [address], 04/06/2024 11:14:53 04/04/20 24 04/06/2024 CBC WITH DIFFE RENTI AL/PL ATELE T RBC 4.69 x10e6 /uL 3.77-5 .28 Not Available [facility] ([facility]) [address] [facility], [place], [address], 04/06/2024 11:14:53 04/04/20 24 04/06/2024 CBC WITH DIFFE RENTI AL/PL ATELE T hemoglobin 13.4 g/dL 11.1-1 5.9 Not Available [facility] ([facility]) [address] [facility], [place], [address], 04/06/2024 11:14:53 04/04/20 24 04/06/2024 CBC WITH DIFFE RENTI AL/PL ATELE T hematocrit 42.4 % 34.0-4 6.6 Not Available [facility] ([facility]) [address] [facility], [place], [address], 04/06/2024 11:14:53 04/04/20 24 04/06/2024 CBC WITH DIFFE RENTI AL/PL ATELE T MCV 90 fL 79-97 Not Available [facility] ([facility]) [address] [facility], [place], [address], 04/06/2024 11:14:53 04/04/20 24 04/06/2024 CBC WITH DIFFE RENTI AL/PL ATELE T MCH 28.6 pg 26.6-3 3.0 Not Available [facility] ([facility]) [address] [facility], [place], [address], 04/06/2024 11:14:53 04/04/20 24 04/06/2024 CBC WITH DIFFE RENTI AL/PL ATELE T MCHC 31.6 g/dL 31.5-3 5.7 Not Available [facility] ([facility]) [address] [facility], [place], [address], 04/06/2024 11:14:53 04/04/20 24 04/06/2024 CBC WITH DIFFE RENTI AL/PL ATELE T RDW 12.5 % 11.7-1 5.4 Not Available [facility] ([facility]) [address] [place], [address], 04/06/2024 11:14:53 04/04/20 24 04/06/2024 CBC WITH DIFFE RENTI AL/PL ATELE T platelets 226 x10e3 /uL 150-45 0 Not Available [facility] ([facility]) [address] [facility], [place], [address], 04/06/2024 11:14:53 04/04/20 24 04/06/2024 CBC WITH DIFFE RENTI AL/PL ATELE T neutrophils 55 % notest ab. Not Available [facility] ([facility]) [address] [facility], [place], [address], 04/06/2024 11:14:53 04/04/20 24 04/06/2024 CBC WITH DIFFE RENTI AL/PL ATELE T lymphs 37 % notest ab. Not Available [facility] ([facility]) [address] [facility], [place], [address], 04/06/2024 11:14:53 04/04/20 24 04/06/2024 CBC WITH DIFFE RENTI AL/PL ATELE T monocytes 6 % notest ab. Not Available [facility] ([facility]) [address] [facility], [place], [address], 04/06/2024 11:14:53 04/04/20 24 04/06/2024 CBC WITH DIFFE RENTI AL/PL ATELE T eos 1 % notest ab. Not Available [facility] ([facility]) [address] [facility], [place], [address], 04/06/2024 11:14:53 04/04/20 24 04/06/2024 CBC WITH DIFFE RENTI AL/PL ATELE T basos 1 % notest ab. Not Available [facility] ([facility]) [address] [facility], [place], [address], 04/06/2024 11:14:53 04/04/20 24 04/06/2024 CBC WITH DIFFE RENTI AL/PL ATELE T neutrophils (absolute) 4.2 x10e3 /uL 1.4-7. 0 Not Available [facility] ([facility]) [address] [facility], [place], [address], 04/06/2024 11:14:53 04/04/20 24 04/06/2024 CBC WITH DIFFE RENTI AL/PL ATELE T lymphs (absolute) 2.8 x10e3 /uL 0.7-3. 1 Not Available [facility] ([facility]) [address] [facility], [place], [address], 04/06/2024 11:14:53 04/04/20 24 04/06/2024 CBC WITH DIFFE RENTI AL/PL ATELE T monocytes(ab solute) 0.5 x10e3 /uL 0.1-0. 9 Not Available [facility] ([facility]) [address] [facility], [place], [address], 04/06/2024 11:14:53 04/04/20 24 04/06/2024 CBC WITH DIFFE RENTI AL/PL ATELE T eos (absolute) 0.1 x10e3 /uL 0.0-0. 4 Not Available [facility] ([facility]) [address] [facility], [place], [address], 04/06/2024 11:14:53 04/04/20 24 04/06/2024 CBC WITH DIFFE RENTI AL/PL ATELE T baso (absolute) 0.0 x10e3 /uL 0.0-0. 2 Not Available [facility] ([facility]) [address] [facility], [place], [address], 04/06/2024 11:14:53 04/04/20 24 04/06/2024 CBC WITH DIFFE RENTI AL/PL ATELE T immature granulocytes 0 % notest ab. Not Available [facility] ([facility]) [address] [facility], [place], [address], 04/06/2024 11:14:53 04/04/20 24 04/06/2024 CBC WITH DIFFE RENTI AL/PL ATELE T immature grans (abs) 0.0 x10e3 /uL 0.0-0. 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 [facility] Not Available Not Available 07/09/2024 09:15:55 07/08/1907/07/2024 Compr ehens cassi metab olic 1999 panel - Serum or Plasm a potassium [moles/volum e] in serum or plasma 3.9 mmol/ L low: 3.4mmo l/Lhig h: 5.1mmo l/L POTAS SIUM 3.9 3.4 - 5.1 mmol/ L 07/07 6:55 PM TUBE ROOM CASHIER [employer] Watkins HireANSON COMMUN[facility] HOSPITALJustBook [facility] Not Available Not Available 07/09/2024 09:15:55 07/08/1907/07/2024 Compr ehens cassi metab olic 1999 panel - Serum or Plasm a chloride 99 mmol/ L low: 98mmol /Lhigh : 107mmo l/L CHLOR NICKY 99 98 - 107 mmol/ L 07/07 6:55 PM 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ATORY [facility] Not Available Not Available 07/09/2024 09:15:55 07/08/19 25 07/07/2024 Compr ehens cassi metab olic 1999 panel - Serum or Plasm a carbon dioxide, total [moles/volum e] in serum or plasma 24 mmol/ L low: 22mmol /Lhigh : 29mmol /L CO2 24 22 - 29 mmol/ L 07/07 6:55 PM 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 [facility] Not Available Not Available 07/09/2024 09:15:55 07/08/19 25 07/07/2024 Compr ehens cassi metab olic 1999 panel - Serum or Plasm a calcium 9.5 mg/dL low: 8.6mg/ dLhigh : 10.4mg /dL CALCI UM 9.5 8.6 - 10.4 mg/dL 07/07 6:55 PM TUBE ROOM CASHIER OpenSignalANSON COMM[facility]OSPITALJustBook [facility] Not Available Not Available 07/09/2024 09:15:55 07/08/19 25 07/07/2024 Compr ens cassi metab [facility] 1999 panel - Serum or Plasm a BUN 12 mg/dL low: 6mg/dL high: 20mg/d L BUN 12 6 - 20 mg/dL 07/07 6:55 PM [employer] [facility] Not Available Not Available 07/09/2024 09:15:55 07/08/1907/07/2024 Compr [facility] cassi metab [facility] 1999 panel - Serum or Plasm a creatinine [mass/volume ] in serum or plasma 0.76 mg/dL low: 0.51mg /dLhig h: 0.95mg /dL CREAT ININE 0.76 0.51 - 0.95 mg/dL 07/07 6:55 PM [employer] [facility] Not Available Not Available 07/09/2024 09:15:55 07/08/1907/07/2024 Compr [facility] cassi [facility] 2000 panel - Serum or Plasm a glucose [mass/volume ] in serum or plasma 104 mg/dL low: 74mg/d Lhigh: 99mg/d L high GLUCO SE 104 (H) 74 - 99 mg/dL 07/07 6:55 PM [employer] [facility] Not Available Not Available 07/09/2024 09:15:55 07/08/19 25 07/07/2024 Compr ens cassi metab ic 1999 panel - Serum or Plasm a total protein 8.1 g/dL low: 6.3g/d Lhigh: 8.7g/d L TOTAL PROTE IN 8.1 6.3 - 8.7 g/dL 07/07 6:55 PM [employer] [facility] Not Available Not Available 07/09/2024 09:15:55 07/08/19 25 07/07/2024 Compr ehens cassi metab olic 1999 panel - Serum or Plasm a albumin 4.7 g/dL low: 3.5g/d Lhigh: 5.2g/d L ALBUM IN 4.7 3.5 - 5.2 g/dL 07/07 6:55 PM [facility] Not Available Not Available 07/09/2024 09:15:55 07/08/19 25 07/07/2024 Compr ehens cassi metab olic 1999 panel - Serum or Plasm a bilirubin total 0.4 mg/dL low: 0.3mg/ dLhigh : 1.2mg/ dL BILIR UBIN TOTAL 0.4 0.3 - 1.2 mg/dL 07/07 6:55 PM [employer] [facility] Not Available Not Available 07/09/2024 09:15:55 07/08/19 25 07/07/2024 Compr ehens cassi metab olic 1999 panel - Serum or Plasm a alkaline phosphatase 81 U/L low: 40U/Lh igh: 150U/L ALKAL INE PHOSP HATAS E 81 40 - 150 U/L 07/07 6:55 PM [employer]Meter [facility] Not Available Not Available 07/09/2024 09:15:55 07/08/19 25 07/07/2024 Compr ehens cassi metab olic 1999 panel - Serum or Plasm a AST 23 U/L low: 0U/Lhi gh: 33U/L AST 23 0 - 33 U/L 07/07 6:55 PM [employer] [facility] Not Available Not Available 07/09/2024 09:15:55 07/08/19 25 07/07/2024 Compr ehens cassi metab olic 1999 panel - Serum or Plasm a alanine aminotransfe rase [enzymatic activity/vol ume] in blood 20 U/L low: 0U/Lhi gh: 33U/L ALT 20 0 - 33 U/L 07/07 6:55 PM [employer]Meter [facility] Not Available Not Available 07/09/2024 09:15:55 07/08/1907/07/2024 Compr ehens cassi metab olic 1999 panel - Serum or Plasm a glomerular filtration rate/1.73 sq M.predicted [volume rate/area] in serum, plasma or blood by creatinine-b ased formula (CKD-epi 2020) text: >=60 mL/min /1.73 sq meter GFR >60 >=60 mL/mi n/1.7 3 sq meter 07/07 6:55 PM 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 Not Available 07/09/2024 09:15:55 07/08/1907/07/2024 Compr ehens cassi metab olic 1999 panel - Serum or Plasm a anion gap 13 mmol/ L low: 8mmol/ Lhigh: 16mmol /L ANION GAP 13 8 - 16 mmol/ L 07/07 6:55 PM 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 Not Available 07/09/2024 09:15:55 07/08/1907/07/2024 Compr ehens cassi metab olic 2000 panel - Serum or Plasm a interpretati on and review of laboratory results Abnorm al Not Available Not Available 09:15:55 07/08/1907/07/2024 CBC W Auto Diffe renti al panel - Blood leukocytes [#/volume] in blood 5.8 K/uL low: 4K/uLh igh: 9.8K/u L WBC 5.8 4.0 - 9.8 K/uL 07/07 6:35 PM 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 Not Available 07/09/2024 09:15:55 07/08/1907/07/2024 CBC W Auto Diffe renti al panel - Blood RBC 4.64 text: 3.90 - 4.90 M/uL RBC 4.64 3.90 - 4.90 M/uL 07/07 6:35 PM 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 Not Available 07/09/2024 09:15:55 07/08/19 25 07/07/2024 CBC W Auto Diffe renti al panel - Blood hemoglobin 13.1 g/dL low: 11.8g/ dLhigh : 14.8g/ dL HEMOG LOBIN 13.1 11.8 - 14.8 g/dL 07/07 6:35 PM TUBE ROOM CASHIER [facility] Not Available Not Available 07/09/2024 09:15:55 07/08/1907/07/2024 CBC W Auto Diffe renti al panel - Blood hematocrit [volume fraction] of blood by automated count 39.6 % low: 35.5%h igh: 44% HEMAT OCRIT 39.6 35.5 - 44.0 % 07/07 6:35 PM [employer] [facility] Not Available Not Available 07/09/2024 09:15:55 07/08/19 25 07/07/2024 CBC W Auto Diffe renti al panel - Blood MCV 85.3 fL low: 82fLhi gh: 99fL MCV 85.3 82.0 - 99.0 fL 07/07 6:35 PM 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 Not Available 07/09/2024 09:15:55 07/08/19 25 07/07/2024 CBC W Auto Diffe renti al panel - Blood MCH 28.2 pg low: 27.2pg high: 32.6pg MCH 28.2 27.2 - 32.6 pg 07/07 6:35 PM [facility]eter [facility] Not Available Not Available 07/09/2024 09:15:55 07/08/19 25 07/07/2024 CBC W Auto Diffe renti al panel - Blood MCHC 33.1 g/dL low: 31.5g/ dLhigh : 35.5g/ dL MCHC 33.1 31.5 - 35.5 g/dL 07/07 6:35 PM TUBE ROOM CASHIER [facility]Just[facility] Not Available Not Available 07/09/2024 09:15:55 07/08/19 25 07/07/2024 CBC W Auto Diffe renti al panel - Blood RDW 13.2 % low: 11.5%h igh: 14.5% RDW 13.2 11.5 - 14.5 % 07/07 6:35 PM [facility] Not Available Not Available 07/09/2024 09:15:55 07/08/19 25 07/07/2024 CBC W Auto Diffe renti al panel - Blood RDW-stdev 41.3 fL low: 37.1fL high: 48.7fL RDW-S TDEV 41.3 37.1 - 48.7 fL 07/07 6:35 PM TUBE ROOM CASHIER [facility] Not Available Not Available 07/09/2024 09:15:55 07/08/19 25 07/07/2024 CBC W Auto Diffe renti al panel - Blood platelets [#/volume] in blood by automated count 173 K/uL low: 140K/u Lhigh: 350K/u L PLATE LETS 173 140 - 350 K/uL 07/07 6:35 PM [facility] Not Available Not Available 07/09/2024 09:15:55 07/08/19 25 07/07/2024 CBC W Auto Diffe renti al panel - Blood MPV 9.9 fL low: 9.3fLh igh: 12.4fL MPV 9.9 9.3 - 12.4 fL 07/07 6:35 PM TUBE ROOM CASHIER [facility] Not Available Not Available 07/09/2024 09:15:55 07/08/19 25 07/07/2024 CBC W Auto Diffe renti al panel - Blood neutrophils 83 % NEUTR OPHIL S 83 % 07/07 6:35 PM [facility] Not Available Not Available 07/09/2024 09:15:55 07/08/19 25 07/07/2024 CBC W Auto Diffe renti al panel - Blood lymphocytes/ 100 leukocytes in blood by automated count 8 % LYMPH OCYTE S 8 % 07/07 6:35 PM TUBE ROOM CASHIER [facility] Not Available Not Available 07/09/2024 09:15:55 07/08/19 25 07/07/2024 CBC W Auto Diffe renti al panel - Blood monocytes 8 % MONOC YTES 8 % 07/07 6:35 PM TUBE ROOM CASHIER [facility] Not Available Not Available 07/09/2024 09:15:55 07/08/19 25 07/07/2024 CBC W Auto Diffe renti al panel - Blood eosinophils 0 % EOSIN OPHIL S 0 % 07/07 6:35 PM [facility] Not Available Not Available 07/09/2024 09:15:55 07/08/19 25 07/07/2024 CBC W Auto Diffe renti al panel - Blood basophils 0 % BASOP HILS 0 % 07/07 6:35 PM [facility] Not Available Not Available 07/09/2024 09:15:55 07/08/19 25 07/07/2024 CBC W Auto Diffe renti al panel - Blood immature granulocytes 0 % IMMAT URE GRANU LOCYT ES 0 % 07/07 6:35 PM [facility] Not Available Not Available 07/09/2024 09:15:55 07/08/19 25 07/07/2024 CBC W Auto Diffe renti al panel - Blood neutrophils [#/volume] in blood by automated count 4.85 K/uL low: 1.9K/u Lhigh: 7K/uL NEUTR OPHIL ABSOL SELDOVIA 4.85 1.90 - 7.00 K/uL 07/07 6:35 PM [facility] Not Available Not Available 07/09/2024 09:15:55 07/08/19 25 07/07/2024 CBC W Auto Diffe renti al panel - Blood lymphocyte absolute 0.47 K/uL low: 0.7K/u Lhigh: 4.5K/u L low LYMPH OCYTE ABSOL SELDOVIA 0.47 (L) 0.70 - 4.50 K/uL 07/07 6:35 PM [facility] Not Available Not Available 07/09/2024 09:15:55 07/08/19 25 07/07/2024 CBC W Auto Diffe renti al panel - Blood monocyte absolute 0.46 K/uL low: 0.1K/u Lhigh: 1.3K/u L MONOC YTE ABSOL SELDOVIA 0.46 0.10 - 1.30 K/uL 07/07 6:35 PM 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 Not Available 07/09/2024 09:15:55 07/08/1907/07/2024 CBC W Auto Diffe renti al panel - Blood eosinophil absolute 0.02 K/uL low: 0K/uLh igh: 0.7K/u L EOSIN OPHIL ABSOL SELDOVIA 0.02 0.00 - 0.70 K/uL 07/07 6:35 PM 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 Not Available 07/09/2024 09:15:55 07/08/19 25 07/07/2024 CBC W Auto Diffe renti al panel - Blood basophils absolute 0.02 K/uL low: 0K/uLh igh: 0.2K/u L BASOP HILS ABSOL SELDOVIA 0.02 0.00 - 0.20 K/uL 07/07 6:35 PM 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 Not Available 07/09/2024 09:15:55 07/08/1907/07/2024 CBC W Auto Diffe renti al panel - Blood immature granulocytes absolute 0.01 K/uL low: 0K/uLh igh: 0.03K/ uL IMMAT URE GRANU LOCYT ES ABSOL SELDOVIA 0.01 0.00 - 0.03 K/uL 07/07 6:35 PM 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 Respi rator y Patho gen PCR Panel NOT DETEC AVERY No respi rator y patho gen nucle ic acids detec avery. 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[facility] Not Available Not Available 07/09/2024 09:15:55 07/08/19 25 07/07/2024 Respi rator y patho gens DNA and RNA panel - Nasop haryn x by MATTY with non-p robe detec tion sars-cov-2 (covid-19) RNA [presence] in nasopharynx by MATTY with non-probe detection NOT DETECT ED text: not detect ed COVID -19 PCR NOT DETEC AVERY Not Detec avery 07/07 8:20 PM TUBE ROOM CASHIER [facility] Not Available Not Available 07/09/2024 09:15:55 07/08/1907/07/2024 Respi rator y patho gens DNA and RNA panel - Nasop haryn x by MATTY with non-p robe detec tion Unknown Analyte The Film Array Respir atory Panel (RP2.1 ) is a multip zack nuclei c acid detect ion test for 22 target s. Viruse s: Adenov irus Guadarrama virus HKU1, NL63, 229E, and OC43 COVID- 19/Sev ere Acute Respir atory Syndro me Guadarrama virus 2 Influe nza A with the follow ing subtyp es: H1, H1-200 9, and H3 Influe nza B Human Metapn eumovi makayla Parain fluenz a virus 1, 2, 3, and 4 Respir atory Syncyt ial virus (RSV) Rhinov irus/E nterov irus (canno t differ entiat e due to geneti c simila rities ) Bacter ia: Bordet jarek pertus sis Bordet jarek parape rtussi s Chlamy dophil a pneumo niae Mycopl asma pneumo niae The Film Array Respi rator y Panel (RP2. 1) is a multi plex nucle ic acid detec tion test for 22 targe ts. Virus es: Adeno virus Coron aviru s HKU1, NL63, 229E, and OC43 COVID -19/S evere Acute Respi rator y Syndr ome Coron aviru s 2 Influ lorenzo A with the follo wing subty pes: H1, H1-20 09, and H3 Influ lorenzo B Human Metap neumo virus Parai nflue nza virus 1, 2, 3, and 4 Respi rator y Syncy tial virus (RSV) Rhino virus /Ente rovir us (freda ot diffe renti ate due to tasia ic simil ariti es) Bacte marcia: Borde tella pertu ssis Borde tella parap ertus sis Chlam ydoph willa pneum oniae Mycop lasma pneum oniae Not Available Not Available 07/09/2024 09:15:55 07/08/1907/07/2024 Respi rator y patho gens DNA and RNA panel - Nasop haryn x by MATTY with non-p robe detec tion interpretati on and review of laboratory results Normal Not Available Not Available 06/30 09:15:55 07/08/19 25 07/07/2024 Influ lorenzo virus A and B and SARS- CoV-2 (COVI D-19) and SARS- relat ed CoV RNA panel - Respi rator y syste m speci men by MATTY with probe detec tion influenza virus A RNA [presence] in specimen by MATTY with probe detection NOT DETECT ED text: not detect ed Influ lorenzo A by PCR NOT DETEC AVERY Not Detec avery 07/07 7:16 PM TUBE ROOM CASHIER [facility] Not Available Not Available 07/09/2024 09:15:55 07/08/19 25 07/07/2024 Influ lorenzo virus A and B and SARS- CoV-2 (COVI D-19) and SARS- relat ed CoV RNA panel - Respi rator y syste m speci men by MATTY with probe detec tion influenza virus B RNA [presence] in specimen by MATTY with probe detection NOT DETECT ED text: not detect ed Influ lorenzo B by PCR NOT DETEC AVERY Not Detec avery 07/07 7:16 PM TUBE ROOM CASHIER [facility] Not Available Not Available 07/09/2024 09:15:55 07/08/1907/07/2024 Influ lorenzo virus A and B and SARS- CoV-2 (COVI D-19) and SARS- relat ed CoV RNA panel - Respi rator y syste m speci men by MATTY with probe detec tion sars-cov-2 (covid-19) RNA [presence] in respiratory system specimen by MATTY with probe detection NOT DETECT ED text: not detect ed COVID -19 PCR NOT DETEC AVERY Not Detec avery 07/07 7:16 PM TUBE ROOM CASHIER [facility] Not Available Not Available 07/09/2024 09:15:55 07/08/1907/07/2024 Influ lorenzo virus A and B and SARS- CoV-2 (COVI D-19) and SARS- relat ed CoV RNA panel - Respi rator y syste m speci men by MATTY with probe detec tion Unknown Analyte This test has been author ized by the FDA under an Emerge ncy Use Author dusty gates for use by author evy guerrero . This test has been valida avery in accord ance with the FDA's guidan ce regard ing Guadarrama virus Diseas e-2019 testin g. Optimu m specim en types and timing for peak viral levels during infect ion have not been determ ined. A negati ve RT-PCR result does not rule out infect ion with the 2019-N ovel Guadarrama virus. This test has been autho rized by the FDA under an Emerg ency Use Autho rizat ion for use by autho rized coy robert. This test has been valid ated in accor dance with the FDA's daniel nce regar ding Coron aviru s Disea - 19 testi ng. Optim um speci men types and timin g for peak viral level s durin g infec tion have not been deter mined . A negat cassi RT-PC R resul t does not rule out infec tion with the 2019- Novel Coron aviru s. Not Available Not Available 07/09/2024 09:15:55 07/08/19 25 07/07/2024 Influ lorenzo virus A and B and SARS- CoV-2 (COVI D-19) and SARS- relat ed CoV RNA panel - Respi rator y syste m speci men by MATTY with probe detec tion interpretati on and review of laboratory results Normal Not Available Not Available 06/30 09:15:55 09/26/19 22 09/25/2021 XR, elbow , 2 view EXAMIN ATION: 2 views right elbow ACCESS ION: [id number] EXAM DATE/T DORA: 2:56 PM REASON FOR EXAM: [id number]: Pain of right elbow joint COMPAR STEFAN: TECHNI QUE: AP and latera l radiog raphs of the right elbow FINDIN GS: No eviden ce of join effusi on. Joint spaces are well aligne d and well mainta ined. No acute fractu re or disloc ation. ===== IMPRES WILLIAM:= ==== Negati ve right elbow 3 views READ BY: DAISHA YEE MD Date: 2021 15:13 [facility] ([facility]) [address] [place], [address], 10/01/2021 19:06:35 12/15/19 22 12/14/2021 XR, chest , 2 view No observ ation record ed. [email or web address] [place], [address], 2021 10:54:24 12/20/19 22 12/19/2021 XR, chest , 2 view No observ ation record ed. [email or web address] [place], [address], 12/22/2021 15:33:16 04/03/20 22 04/03/2022 XR, knee Examin ation: Left knee 3 views Access ion: [id number] Exam Date/T dora: 12/3/2 022 1:40 PM Reason For Exam: [id number]: Pain of left knee joint Pain over the latera l tibial patell ar joint. No known injury . Compar stefan: Left knee radiog raphs 021 Techni que: 3 views of the left knee were obtain ed. Findin gs: No joint effusi on. 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 Joint spaces relati vely preser dannielle. No fractu re or disloc ation. No destru ctive osseou s lesion s. No radiop aque foreig n bodies . ===== IMPRES WILLIAM:= ==== 1. No acute osseou s abnorm alitie s. Electr onical ly Signed By: Too pacheco MD on 2:05 PM READ BY: DANIEL PACHECO MD, TOO Nash. Date: 2021 14:05 [facility] ([facility]) [address] [place], [address], 04/05/2022 18:24:48 06/13/19 25 06/08/2024 MAMMO , scree grzegorz, bilat eral No observ ation record ed. [facility] [address] [place], [address], 06/13/2024 17:20:18 07/17/19 25 MAMMO , diagn ostic , unila teral No observ ation record ed. [facility] [address], [place], [address], 07/16/2024 10:59:29 07/17/19 25 MAMMO , diagn ostic , unila teral No observ ation record ed. [facility] [address], [place], [address], 07/16/2024 10:37:06 07/17/19 25 [place], breas t, unila teral No observ ation record ed. [facility] [address] , [place], [address], 07/17/2024 08:35:09 Result Notes None recorded. Problems Name Problem SNOMED Code Status Onset Date Resolution Date Notes Provider Name and Address Organization Details Recorded Time Gastroesop hageal reflux disease 241831097 Active 2019 Not Available [employer] 2 05:41:07 Multiple gastric erosions 788344985 Active 2020 Not Available [employer] 2 05:41:07 Hot sweats 432891256 Active 2022 EMILIA CELIS Attn: Accounting ,[address] [facility], [place], [address] , [place] [facility] 3 17:34:59 Obesity 989693082 Active 2023 EMILIA CELIS Attn: Accounting ,[address] [facility], [place], [address] , [place] [facility] 4 17:15:37 Essential hypertensi on 69106931 Active 2023 EMILIA CELIS Attn: Accounting ,[address] [facility], [place], [address] , [place] [facility] 4 07:36:15 Migraine 82783020 Active 2016 Not Available [facility] 2 05:41:07 Upper chest pain 153749419 Active 2016 Not Available [facility] 2 05:41:07 Chronic chest pain 2257384831452 01 Active 2016 Not Available [facility] 2 05:41:07 Family history of Atheroscle rosis 208284438 Active 2016 Not Available [facility] 2 05:41:07 Palpitatio ns 60203973 Active 2016 Not Available [facility] 2 05:41:07 Anxiety 08834247 Active 2016 Not Available [facility] 2 05:41:07 Problem Notes None recorded. Procedures Surgical History Date Name Laterality Status Provider Name and Address Organization Details Recorded Time 08/14/19 20 Skin Tag Removal completed EMILIA CELIS Attn: Accounting, [address], [place], [address], [place] [facility] 08/14/2019 14:12:07 05/02/19 17 colonoscopy completed Annmarie Verduzco [place] [facility] 08/14/2019 11:34:27 Removal of tonsils completed [place] Vel[place]co [place] [facility] 12/01/2016 10:35:04 Cholecystectomy completed Tatyana Velasco [place] [facility] 12/01/2016 10:35:14 Removal of ovarian cyst(s) completed Tatyana Velasco [place] [facility] 12/01/2016 10:35:30 Imaging Results Imaging Date Name Status LastModified by [facility] Details LastModified Time 09/25/2021 XR, elbow, 2 view completed [facility] [address] [facility], [place], [address], 10/01/2021 19:06:35 12/14/2021 XR, chest, [email or web address] [facility], [place], [address], 2021 10:54:24 12/19/2021 XR, chest, [address] [facility], [place], [address], 12/22/2021 15:33:16 04/03/2022 XR, knee completed [facility] ([facility]) [address], [place], [address], 04/05/2022 18:24:48 06/08/2024 MAMMO, screening, bilateral completed [facility] [address], [place], [address], 06/13/2024 17:20:18 07/16/2024 MAMMO, diagnostic, unilateral completed [facility] [address], [place], [address], 07/16/2024 10:59:29 07/16/2024 MAMMO, diagnostic, unilateral completed [facility] [address] , [place], [address], 07/16/2024 10:37:06 07/16/2024 US, breast, unilateral completed [facility] [address], [place], [address], 07/17/2024 08:35:09 Procedure Notes None recorded. Medical Equipment None Reported. Allergies Allergen ID Allergen Name Allergen Category Reaction Reaction Severity Criticality Documentation Date Start Date Code Code System Note Provider Name and Address Organization Details Recorded Time 204284 memantine medicatio n Not available Not available Not available 11/07/2019 6719 Rx[facility] BRANDIE [place], [place] [facility] 0 14:01:24 12404 Reglan medicatio n Not available Not available Not available 11/08/20162009 9230 Rx[facility] Hector [place], [place] [facility] 7 10:34:34 [address] Eschschol salvatore [place] extract food rash Not available Not available 11/08/20162013 18649 6 [facility] [place], [place] [facility] 7 10:35:11 19164 Compazine medicatio n other severe Not available 11/08/20162010 41514 6 Rx[facility] [place], [place] [facility] 7 10:35:26 Medications Name Sig Start Date Stop Date Status Note LastModified by Organization Details LastModified Time cyclobenzap rine 10 mg tablet Take 1 tablet 3 times a day by oral route as needed. 08/12 completed Not Available Not Available Not Available venlafaxine ER 37.5 mg capsule,ext ended release 24 hr TAKE 1 CAPSULE BY MOUTH EVERY DAY ALONG WITH 2 OF THE 75MG CAPSULES active Not Available Not Available No t Available venlafaxine ER 75 mg capsule,ext ended release 24 hr TAKE 2 CAPSULES BY MOUTH EVERY DAY 2024 active Not Available Not Available Not Avai lable azithromyci n 250 mg tablet TAKE 2 TABLETS (500 MG) BY ORAL ROUTE ONCE DAILY FOR 1 DAY THEN 1 TABLET (250 MG) BY ORAL ROUTE ONCE DAILY FOR 4 DAYS active Not Available Not Available No t Available fluconazole 150 mg tablet 08/02 completed Not Available Not Available Not Available hydrocodone 5 mg-acetamin ophen 325 mg tablet Take 1 tablet twice a day by oral route for 30 days. 08/12 completed Not Available Not Available Not Available meloxicam 15 mg tablet 02/02 completed Not Available Not Available Not Available sucralfate 1 gram tablet TAKE 1 TABLET BY MOUTH FOUR TIMES DAILY 01/05 completed Not Available Not Available Not Available ondansetron HCl 4 mg tablet TAKE 1 TO 2 TABLETS BY MOUTH EVERY 6 TO 8 HOURS NEEDED FOR NAUSEA active Not Available Not Available No t Available famotidine 40 mg tablet TAKE 1 TABLET BY MOUTH EVERY DAY 01/05 completed Not Available Not Available Not Available prednisone 20 mg tablet TAKE 1 TABLET BY MOUTH EVERY DAY WITH A MEAL 04/04 completed Not Available Not Available Not Available clonazepam 0.5 mg tablet TAKE 1 TABLET BY MOUTH TWICE DAILY NEEDED active Not Available Not Available No t Available permethrin 5 % topical cream APPLY (THOROUGH LY MASSAGE INTO SKIN FROM HEAD TO SOLES OF FEET) BY TOPICAL ROUTE ONCE LEAVE ON FOR 8-14 HR, THEN REMOVE BY THOROUGH WASHING 12/23 completed Not Available Not Available Not Available venlafaxine ER 150 mg capsule,ext ended release 24 hr 01/17 completed Not Available Not Available Not Available cyanocobala min (vit B-12) 1,000 mcg tablet Take 1 tablet every day by oral route. 01/05 completed Not Available Not Available Not Available metronidazo le 500 mg tablet 12/01 completed Not Available Not Available Not Available acetaminoph en 300 mg-codeine 30 mg tablet TAKE 1 TABLET BY MOUTH EVERY 8 HOURS FOR 10 DAYS NEEDED active Not Available Not Available No t Available ciprofloxac in 500 mg tablet 12/01 completed Not Available Not Available Not Available aspirin 81 mg tablet,camron yed release TAKE 1 TABLET BY MOUTH TWICE DAILY active Not Available Not Available No t Available butalbital- acetaminoph en-caffeine 50 mg-325 mg-40 mg tablet 03/06 completed Not Available Not Available Not Available methylpredn isolone acetate 80 mg/mL suspension for injection Take 80 mg by injection route. 03/23 completed Not Available Not Available Not Available alprazolam 0.25 mg tablet TAKE 1 TABLET BY MOUTH EVERY 8 HOURS FOR 7 DAYS NEEDED 03/23 completed Not Available Not Available Not Available Vitamin D3 10 mcg (400 unit) tablet Take 1 tablet every day by oral route. active Not Available Not Available No t Available famotidine 20 mg tablet TAKE 1 TABLET BY MOUTH TWICE DAILY NEEDED 09/04 completed Not Available Not Available Not Available desonide 0.05 % topical ointment APPLY SPARINGLY AND GENTLY MASSAGE TOPICALLY TO THE AFFECTED AREA TWICE DAILY 04/04 completed Not Available Not Available Not Available aspirin 325 mg tablet,camron yed release TAKE 1 TABLET BY MOUTH EVERY DAY 08/12 completed Not Available Not Available Not Available benzonatate 100 mg capsule TAKE 1 CAPSULE BY MOUTH THREE TIMES DAILY NEEDED 01/05 completed Not Available Not Available Not Available cephalexin 500 mg capsule TAKE 1 CAPSULE BY MOUTH EVERY 6 HOURS 08/12 completed Not Available Not Available Not Available pantoprazol e 40 mg tablet,camron yed release TAKE 1 TABLET BY MOUTH EVERY DAY 04/04 completed Not Available Not Available Not Available nortriptyli ne 10 mg capsule 12/01 completed Not Available Not Available Not Available cyanocobala min (vit B-12) 1,000 mcg/mL injection solution ADMINISTE R 1 ML UNDER THE SKIN EVERY WEEK 01/04 completed Not Available Not Available Not Available oseltamivir 75 mg capsule Take 1 capsule twice a day by oral route for 10 days. 08/02 completed Not Available Not Available Not Available buspirone 10 mg tablet TAKE 1 TABLET BY MOUTH TWICE DAILY active Not Available Not Available No t Available buspirone 7.5 mg tablet Take 1 tablet twice a day by oral route for 30 days. 07/16 completed Not Available Not Available Not Available omeprazole 20 mg capsule,del ayed release TAKE 1 CAPSULE BY MOUTH EVERY DAY BEFORE A MEAL active Not Available Not Available No t Available hydroxyzine HCl 25 mg tablet TAKE 1 TABLET BY MOUTH THREE TIMES DAILY NEEDED 04/04 completed Not Available Not Available Not Available zolpidem 5 mg tablet TAKE 1 TABLET BY MOUTH AT BEDTIME NEEDED active Not Available Not Available No t Available gabapentin 100 mg capsule TAKE 1 TO 3 CAPSULES BY MOUTH EVERY MORNING AND 4 CAPSULES EVERY NIGHT AT BEDTIME 02/03 completed Not Available Not Available Not Available clobetasol 0.05 % topical ointment 12/01 completed Not Available Not Available Not Available estradiol 0.01% (0.1 mg/gram) vaginal cream active Not Available Not Available Not Available methylpredn isolone 4 mg tablets in a dose pack FOLLOW PACKAGE DIRECTION S 07/14 completed Not Available Not Available Not Available ketorolac 60 mg/2 mL intramuscul ar solution Inject 2 mL by intramusc ular route as directed. 02/02 completed Not Available Not Available Not Available propranolol 20 mg tablet 12/01 completed Not Available Not Available Not Available ondansetron 4 mg disintegrat ing tablet DISSOLVE 2 TABLETS ON THE TONGUE EVERY 12 HOURS FOR 5 DAYS active Not Available Not Available No t Available metronidazo le 0.75 % topical gel APPLY THIN LAYER TOPICALLY TO THE AFFECTED AREA TWICE DAILY IN THE MORNING AND IN THE EVENING 04/04 completed Not Available Not Available Not Available neomycin-po lymyxin-hyd rocort 3.5 mg-10,000 unit/mL-1 % ear drops,susp SHAKE LIQUID AND INSTILL 4 DROPS TO AFFECTED EAR THREE TIMES DAILY active Not Available Not Available No t Available metoprolol tartrate 25 mg tablet Take 1 tablet every day by oral route for 30 days. 02/09 completed Not Available Not Available Not Available magnesium Daily active Not Available Not Barbara ilable Not Available niacin 01/05 completed Not Available Not Available Not Available Lopressor 02/07 completed Not Available Not Available Not Available hydrochloro thiazide 12.5 mg tablet TAKE 1 TABLET BY MOUTH EVERY DAY 02/03 completed Not Available Not Available Not Available Cambia 50 mg oral powder packet MIX ONE PACKET WITH 1 TO 2 OUNCES OF WATER AT ONSET OF HEADACHE. MAY REPEAT ONCE IF NEEDED active Not Available Not Available No t Available butalbital- acetaminoph en-caffeine 50 mg-300 mg-40 mg capsule TAKE ONE CAPSULE BY MOUTH EVERY 4 HOURS NEEDED FOR PAIN OR HEADACHES 07/06 completed Not Available Not Available Not Available Probiotic Daily 08/12 completed Not Available Not Available Not Available memantine 7 mg capsule sprinkle,ex tended release 24hr Take 1 capsule every day by oral route. 11/06 completed Not Available Not Available Not Available Virtussin AC 10 mg-100 mg/5 mL oral liquid 12/01 completed Not Available Not Available Not Available butterbur root extract Daily 02/09 completed Not Available Not Available Not Available Aimovig Autoinjecto r 70 mg/mL subcutaneou s auto-inject or 08/12 completed Not Available Not Available Not Available Ubrelvy 50 mg tablet 08/12 completed Not Available Not Available Not Available Nurtec ODT 75 mg disintegrat ing tablet 04/04 completed Not Available Not Available Not Available Ajovy 225 mg/1.5 mL subcutaneou s auto-inject or 04/04 completed Not Available Not Available Not Available ID NOW COVID-19 Test Kit TEST DIRECTED [id number] active Not Available Not Available No t Available COVID-19 test specimen collection DIRECTED active Not Available Not Available No t Available ashwagandha root extract active Not Available Not Available Not Available Paxlovid 300 mg (150 mg x 2)-100 mg tablets in a dose pack TK 2 NIRMATREL VIR TS AND 1 RITONAVIR T TOGETHER PO BID FOR 5 DAYS BID FOR 5 DAYS 12/23 completed Not Available Not Available Not Available Mounjaro 2.5 mg/0.5 mL subcutaneou s pen injector Inject 2.5 mg every week by subcutane ous route. 2023 active Not Available Not Available Not Avai lable Nerivio [employer] [place] (migraine) USE ONE 45 MINUTE TREATMENT EVERY OTHER DAY FOR PREVENTIO NOR DIRECTED active Not Available Not Available No t Available Zepbound 2.5 mg/0.5 mL subcutaneou s pen injector Inject 2.5 mg every week by subcutane ous route. 04/10 completed Not Available Not Available Not Available Vitals Date Recorded Body height Heart rate Oxygen saturation Oxygen saturation in Arterial blood by Pulse oximetry Body mass index (BMI) Body weight Systolic blood pressure Diastolic blood pressure Provider Name and Address Organization Details Last Updated DateTime 2 157.48 cm 88 /min 99 % 99 % 27.3 kg/m2 59838.9 6 g 114 mm[Hg] 62 mm[Hg] Kacie Gudino MA [facility] 2 17:35:34 Date Recorded Heart rate Oxygen saturation Oxygen saturation in Arterial blood by Pulse oximetry Body height Systolic blood pressure Diastolic blood pressure Provider Name and Address Organization Details Last Updated DateTime 3 81 /min 98 % 98 % 157.48 cm 118 mm[Hg] 64 mm[Hg] Kacie Gudino MA [facility] 3 17:09:11 Date Recorded Body height Body mass index (BMI) Body weight Oxygen saturation Oxygen saturation in Arterial blood by Pulse oximetry Heart rate Respiratory rate Systolic blood pressure Diastolic blood pressure Provider Name and Address Organization Details Last Updated DateTime 4 157.48 cm 28.9 kg/m2 56237.5 9 g 98 % 98 % 90 /min 16 /min 120 mm[Hg] 74 mm[Hg] Kacie Gudino MA [facility] 4 17:19:42 Date Recorded Body temperature Provider Name a la Address Organization Details Last Updated DateTime 07/07/2023 98.4 [degF] EMILIA NAM Attn: Accounting,[address] [place], [address], [facility] 07/07/2023 17:36:51 Date Recorded Body height Heart rate Oxygen saturation Oxygen saturation in Arterial blood by Pulse oximetry Systolic blood pressure Diastolic blood pressure Provider Name and Address Organization Details Last Updated DateTime 4 157.48 cm 97 /min 97 % 97 % 130 mm[Hg] 86 mm[Hg] Kacie Gudino MA [facility] 4 16:33:30 Date Recorded Body mass index (BMI) Body weight Provider Name and Address Organization Details Last Updated DateTime 04/04/2024 30 kg/m2 21332.15 g EMILIA CELIS Attn: Accounting,[address] [place], [address], [facility] 04/04/2024 17:12:55 Social History Question Answer Notes LastModified by Organizat ion Details LastModified Time Tobacco Smoking Status Never Smoker Tatyana Rod [facility], [place] - [facility] 12/01/2016 10:33:32 What Is Your Level Of Alcohol Consumption? None Information not available 08/14/2019 What Is Your Level Of Caffeine Consumption? Moderate Information not available 08/14/2019 How Much Tobacco Do You Chew? None Information not available 08/14/2019 Are You Currently Employed? Yes Information not available 08/14/2019 Which Illicit Or Recreational Drugs Have You Used? None Information not available 08/14/2019 Do You Or Have You Ever Used E-cigarettes Or Vape? Never Used Electronic Cigarettes Information not available 08/14/2019 Education Post Graduate Information not available 08/14/2019 What Is Your Occupation? [employer] Information not available 08/14/2019 Hard Of Hearing Or Deaf In One Or Both Ears? No Information not available 08/14/2019 Legally Blind In One Or Both Eyes? No Information no t available 08/14/2019 Live Alone Or With Others? With Others Information not available 08/14/2019 What Was The Date Of Your Most Recent Tobacco Screening? 04/04/2024 Information not available 04/04/2024 How Many Children Do You Have? 0 Information not available 08/14/2019 Are You Passively Exposed To Smoke? No Information no t available 08/14/2019 Do You Or Have You Ever Used Smokeless Tobacco? Never Used Smokeless Tobacco Information not available 08/14/2019 How Much Tobacco Do You Smoke? No Information not available 08/14/2019 On What Date Was Tobacco Cessation Counseling Provided? 04/04/2024 Information not available 04/04/2024 How Many Years Have You Smoked Tobacco? 0 Information not available 08/14/2019 Sex: Female Functional Status Question Answer Note LastModified by Organization D etails LastModified Time Are you able to care for yourself? Yes Information n ot available 08/14/2019 Mental Status None recorded. Family History Relationship Description Onset Age of this Age Resolved Age Notes LastModified by Organization Details LastModified Time Mother Heart disease 81 [email or web address] Not available 2023 16:47:57 Mother Heart valve disorder 60 [email or web address] Not available 2023 16:48:19 Brother Myocardial infarction [email or web address] Not available 06/2016 10:34:04 Brother Hypertensive disorder [email or web address] Not available 2023 16:48:32 Brother Hyperlipidem ia screening [email or web address] Not available 08/2023 16:48:58 Father Cardiac pacemaker in situ [email or web address] Not available 06/2016 10:34:36 Sister Hypertensive disorder [email or web address] Not available 2023 16:48:32 Medical History Condition Response Coronary Artery Disease N Other N Gout N High Blood Pressure N Atrial Fibrillation N Kidney Stones Y Hyperthyroidism N Thyroid Problems N Kidney or Bladder Problems N Hypothyroidism N GI Problems N Depression N COPD N Blood Clots N Skin Problems N Anemia N Diverticulitis/Diverticulosis N Heart Attack ([place]) N Diabetes N Anxiety Disorder N Muscle, Joint, or Bone Problems N Seizures/Epilepsy N Tuberculosis N Hyperlipidemia N Acid Reflux (GERD) N Cancer N Stroke N Asthma N Allergies N Sleep Apnea N High Cholesterol N GERD/Reflux Y Hepatitis N Liver Disease N Heart Disease N Headaches Y Hypertension N Osteoporosis N Heart Failure N Kidney Disease N Gynecological History Statement/Question Response Date of LMP 07/12/2019 Frequency of Cycle (Q days) 28 Menses Monthly Y Date of Last Pap Smear Age at Menarche 16 Current Control Method None LMP Approximate Obstetrics History GPAL:G 2 P 0 0 2 0 Type Value Multiple Births 0 Full Term 0 Induced 0 Spontaneous 2 Premature 0 Living 0 Ectopics 0 Total 2 Immunizations Vaccine Type Date Status Note Provider Nam e and Address Organization Details Recorded Time COVID-19, mRNA, LNP-S, PF, 30 mcg/0.3 mL dose 0 completed Kacie Gudino MA null, [place] - [facility] 06/11/2024 17:36:52 COVID-19, mRNA, LNP-S, PF, 30 mcg/0.3 mL dose 1 completed Kacie Gudino [place], [place] [facility] 06/11/2024 17:36:52 zoster recombinant 2 completed Kacie Gudino [place], [place] [facility] 06/11/2024 17:36:52 zoster recombinant 2 completed Kacie Gudino [place], [place] [facility] 06/11/2024 17:36:52 COVID-19, mRNA, LNP-S, PF, 30 mcg/0.3 mL dose 1 completed Kacie Gudino [place], [place] [facility] 06/11/2024 17:36:52 Influenza, split virus, quadrivalent, preservative 8 completed Not Available [facility] 05/19/2019 02:45:31 Pneumococcal conjugate PCV20, polysaccharide PAG227 conjugate, adjuvant, PF 4 completed EMILIA CELIS Attn: Accounting[address] [place], [address], [place] [facility] 04/04/2024 20:40:56 Influenza, split virus, trivalent, PF 4 completed EMILIA CELIS Attn: Accounting[address] [place], [address], [place] [facility] 04/04/2024 20:40:56 Hep B, adult 7 completed Not Available [facility] 12/20/2021 05:41:07 Hep B, adult 7 completed Not Available [facility] 12/20/2021 05:41:07 Hep B, adult 7 completed Not Available [facility] 12/20/2021 05:41:07 Past Encounters Encounter ID Performer Location Encounter Start Date Encounter Closed Date Diagnosis/Indication Diagnosis SNOMED-CT Code Diagnosis ICD10 Code Diagnosis Note [id number] Bernard Velasco MD [facility] [address] [place] [address] 12/01/2016 10:00:36 12/06/2016 14:52:45 Upper chest pain 755201566 R07.9 Chronic chest pain 68589 15989 29461 R07.9 Family his tory of Atherosclerosis 631901632 Z82.49 Migraine 69866853 G43.90 9 Palpitations 62120844 R0 0.2 [id number] Bernard Velasco MD [facility] [address] [place] [address] 12/08/2016 10:18:07 12/10/2016 13:22:20 Chronic chest pain 8997153937 04114 R07.9 Upper chest pain 6063962 08 R07.9 Palpitations 94822806 R0 0.2 Family his tory of Atherosclerosis 323814102 Z82.49 Migraine 25412538 G43.90 9 [id number] Bernard Velasco MD [facility] [address] [place] [address] 03/02/2017 09:39:42 03/04/2017 09:21:23 Palpitations 24327270 R00.2 Chronic chest pain 00341 13242 08815 R07.9 Family his tory of Atherosclerosis 143867844 Z82.49 Anxiety 75980551 F41.9 [id number] Bernard Velasco MD [facility] [address] [place] [address] 06/29/2017 09:40:01 07/04/2017 10:29:57 Upper chest pain 800416744 R07.9 Family his tory of Atherosclerosis 352802556 Z82.49 Palpitations 93927752 R0 0.2 [id number] DRAGAN Pierre NP [facility] [address] [place] [address] 08/01/2017 15:11:38 08/03/2017 10:47:57 Palpitations 22875615 R00.2 Obtain labs. Pt defers EKG at this time. Will continue to follow-up with cardiology annually. [id number] DRAGAN Pierre NP [facility] [address] [place] [address] 12/14/2017 11:23:53 12/14/2017 13:24:12 Migraine 89287906 G43.909 -Toradol 60mg IM this visit-Camb ia prn-Rest, increase fluids Chest pain 03138274 R07. 9 -Obtain labs [id number] DRAGAN Pierre NP [facility] [address] [place] [address] 2017 12:32:56 12/16/2017 15:53:32 Migraine 72679593 G43.909 -Toradol 60mg IM this visit-Camb marcia prn-Conser vative tx- rest, cold/dark room-Fe [facility] in [facility], pt to think about it-F/u prn [id number] DRAGAN Pierre NP [facility] [address] [place] [address] 02/09/2018 12:42:35 02/09/2018 14:21:03 Migraine 94796695 G43.909 -Uncontrol led migraines- Refer to neuro [id number] Chandni Christine MD [facility] [address] [place] [address] 02/23/2019 10:01:48 02/26/2019 07:40:21 Presbyopia 88155197 H52.4 Generalized headache 162 407907 R51 Eye strain 38575726 H53. 285 [id number] EMILIA CELIS [facility] [address] [place] [address] 08/14/2019 11:23:42 08/22/2019 14:24:15 Migraine 92036241 G43.909 Patient has history of daily chronic migraines. There is no day where she does not have migraine. She has tried botox, propanolol , topomax, nortriptyl ine, cambia, triptans, ibuprofen, tylenol. SHe has seen a neurologis t. The only thing that helps take the edge off severe migraines is tylenol 3. Having a migraine can affect her work and QOL. - tylenol 3 prn- continue venlafaxin e 150 mg- ER if develops worst headache of life- continue with neurologis t prn Skin tag 204567717 L91.8 removed two small skin tags from right side base of neck. Patient tolerated well without lidocaine. hemostasis achieved with pressure and AlCl [id number] EMILIA CELIS [facility] [address] [place] [address] 08/21/2019 10:32:52 08/22/2019 15:16:43 Pain of shoulder region 01293456 M25.385 [id number] EMILIA CELIS [facility] [address] [place] [address] 08/22/2019 11:03:00 08/23/2019 15:09:58 Red right eye 5315642553 5924401 R68.89 Patent presents with red eye x 1 day. Started yesterday when she noticed. No change in vision, pain, itching , swelling, discharge. On exam full ROM. likely subconjunc tival hemorrhage - patient assured that it is benign and will clear up within days- f/u if develops pain, change in vision [id number] MONICA Enriquez [address] [place] [address] 11/16/2019 11:38:52 11/19/2019 07:30:30 Suspected COVID-19 945995675 Z03.818 D/w pt the current pandemic of COVID-19 and call for social isolation in order to blunt the curve and minimize risk and spread. Encouraged patient and family to take restrictio ns seriously. They have verbalized understand ing of such. Viral syndrome 909781609 B34.9 [id number] BARRERA MOULTON NP [facility] [address] [place] [address] 08/12/2020 09:22:24 08/12/2020 15:06:22 Gastroesophageal reflux disease 876043104 K21.9 Fairly well controlled with famotidine 20 mg BID with PRN omeprazole 20 mg daily and carafate 1 gram BID Migraine 65448796 G43.90 9 On Cambia, butalbital -acetamino phen-caffe ine PRN ketorolac managed in primary care Anxiety 91860183 F41.9 [id number] BARRERA MOULTON NP [facility] [address] [place] [address] 09/04/2020 09:48:16 09/04/2020 16:12:17 Multiple gastric erosions 316502879 K25.9 Reactive gastropath y with mild chronic inflammati on, duodenitis D/C all NSAIDS Does not drink EtOH D/C famotidine D/C omeprazole as she is not taking it at all at this time Will change PPIs from omeprazole to pantoprazo le To take Carafate 1 gram AC and HS. Can wait until after Ramadan to start this if she desires to do so. [id number] EMILIA CELIS [facility] [address] [place] [address] 09/15/2020 10:21:28 09/15/2020 10:43:11 Adult health examination 138437282 Z00.00 [id number] EMILIA CELIS [facility] [address] [place] [address] 09/17/2020 14:05:42 09/18/2020 09:42:02 Fatigue 91037764 R53.83 [id number] EMILIA CELIS [facility] [address] [place] [address] 10/10/2020 14:44:14 10/11/2020 08:57:51 Chronic headache disorder 928063402 G44.89 [id number] EMILIA CELIS [facility] [address] [place] [address] 10/17/2020 13:00:58 10/24/2020 12:31:48 [id number] EMILIA CELIS [facility] [address] [place] [address] 03/06/2021 15:01:56 03/09/2021 07:33:02 Migraine 73461558 G43.909 Patient has history of daily chronic migraines. There is no day where she does not have migraine. She has tried botox, propanolol , topomax, nortriptyl ine, cambia, triptans, ibuprofen, tylenol. SHe has seen a neurologis t and going to go see Dr Jackson from [facility] care in [place] for second opinion. The only thing that helps take the edge off severe migraines is tylenol 3. Having a migraine can affect her work and QOL. wants tylenol 4mg will go see new neurologis t.- tylenol 3 prn- continue venlafaxin e 150 mg- ER if develops worst headache of life- continue with neurologis t prn Screening mammography 24 968412 Z12.31 Perimenopausal state 385 0791575 56349 Z78.0 last period 3 months ago.Pap done at [facility] 2ish ? years ago, normal. Insomnia 314362375 G47.0 0 does well on prn zolpidem [id number] EMILIA CELIS [facility] [address] [place] [address] 05/06/2021 13:09:10 05/07/2021 10:48:53 Migraine 59616741 G43.909 Patient has history of daily chronic migraines. There is no day where she does not have migraine. She has tried botox, propanolol , topomax, nortriptyl ine, cambia, triptans, ibuprofen, tylenol. SHe has seen a neurologis t and going to go see Dr Jackson from [facility] in [place] for second opinion. The only thing that helps take the edge off severe migraines is tylenol 3. Having a migraine can affect her work and QOL. wants tylenol 4mg will go see new neurologis t.- tylenol 3 prn- continue venlafaxin e 150 mg- ER if develops worst headache of life- continue with neurologis t prn Insomnia 688129906 G47.0 0 does well on prn zolpidem Acute bronchitis 5461297 2 J20.9 [id number] EMILIA CELIS [facility] [address] [place] [address] 09/24/2021 17:12:37 09/29/2021 10:35:30 Vitamin B12 deficiency (non anemic) 39340646 E53.8 Pruritic rash 96263089 L 28.2 Migraine 31953404 G43.90 9 Patient has history of daily chronic migraines. There is no day where she does not have migraine. She has tried botox, propanolol , topomax, nortriptyl ine, cambia, triptans, ibuprofen, tylenol. SHe has seen a neurologis t and going to go see Dr Jackson from [facility] in [place] for second opinion. The only thing that helps take the edge off severe migraines is tylenol 3. Having a migraine can affect her work and QOL. wants tylenol 4mg will go see new neurologis t.- tylenol 3 prn- continue venlafaxin e 150 mg- ER if develops worst headache of life- continue with neurologis t prn Prediabetes 969643029 R7 3.03 5.8 Easy bruising 059232088 R58 worsening bruising in last 6 months. stop aspirin. Infestatio n by Sarcoptes scabiei kimberly hominis 175218655 B86 pruritic papules over arms, wrists and chest and trunk. denies pain before onset. ddx: dermatitis , scabies, disseminat ed shingles - use medication as prescribed - f/u if not improving Pain of ri ght elbow joint 0391005915 8373744 M25.521 right elbow pain after hitting on car door causing bruising, swelling and pain with movement's . [id number] EMILIA CELIS [facility] [address] [place] [address] 12/23/2021 17:24:56 12/31/2021 11:49:14 Anxiety 64739951 F41.9 treatment for new onset anxiety likely from medication interactio n v covid. Will treat acutely with short term medication to allow patient to sleep. denies si/hi.- f/u 2-4 weeks [id number] EMILIA CELIS [facility] [address] [place] [address] 01/04/2023 17:05:05 01/04/2023 17:43:45 Anxiety 41173617 F41.9 recent episode of anxiety improving with ashwagandh alabs wnl Vitamin B1 2 deficiency (non anemic) 50114912 E53.8 Screening mammography 24 233646 Z12.31 due for mammogram Screening for malignant neoplasm of colon 891499623 Z12.11 done at age 52, need records from [facility] Hot sweats 787394755 R61 c/o of hot flashes/sw eatscheck hormones Adult heal th examination 339580584 Z00.01 - labs- need colonoscop y record- due for mammogram [id number] Zach gates MD [facility] [address] [place] [address] 07/07/2023 17:14:46 07/08/2023 08:27:06 Streptococcal sore throat 93494003 J02.0 x2 daysa/w L ear pain and body achesno sick contactsdi d not test for COVIDPEx- erythema to oropharynx rapid strep positiveal lergy to penicillin , sent Z bob Migraine 43899552 G43.90 9 chronicwor se the past 2 daysno relief with prescripti on migraine medication will give 5 day script of tylenol #3 [id number] Julián Black MD [facility] [address] [place] [address] 04/04/2024 16:28:25 04/04/2024 17:11:28 Adult health examination 069910578 Z00.01 - labs- need colonoscop y record- will schedule pap at [facility]- due for mammogram- flu and pneumonia shot today- start GLP1 Family his tory of coronary arteriosclerosis 263472372 Z82.49 significan t family history of CAD mother: mechanical heart valvefathe r: MIBrother: [place] with 6 stents Screening mammography 24 957284 Z12.31 due for mammogram Administra tion of pneumococcal vaccine 81662724 Z23 agrees to vaccine Obesity 367568685 E66.9 patient with BMI 30 prediabete s, family history of CAD and stage I hypertensi onshe would benefit from Zepbound to avoid progressio n of diseases Patient denies fam hx of thyroid cancer, personal hx pancreatit is. Medication side effects were reviewed with patient and include MARBIN, pancreatit is, nausea, vomiting, stomach upset. Patient was shown pen and was shown how to clean area, inject pen, and how often to administer . Essential hypertension 28399693 I10 stage 1 htn todayadvis ed checking at home and f/uhas had worsening headache lately but not checking BP at homewill hold off on tx at this time until we have some more BP readings Administra tion of influenza vaccine 17559656 Z23 Health Concerns Section Related Observation LastModified by Organization Detai ls LastModified Time None Recorded Concern Status LastModified by Organization Details LastModified Time None Recorded Advance Directives Directive None Recorded Payers Encounter Date Sequence Insurance Name Policy Number Policy Ruiz Covered Member ID Ruiz Member ID Guarantor Name 09/24/2021 1 [place] [id number] Hectro Montesi [id number] Hector Melgozalabi 12/23/2021 1 [place] [id number] Hector Melgozalabi [id number] Khaoluis Brianna 01/04/2023 1 [place] [id number] Hector Melgozalabi [id number] Khaola Brianna 07/07/2023 1 [place] [id number] Hector Melgozalabi [id number] Khaola Brianna 04/04/2024 1 [place] [id number] Hector Melgozalabi [id number] Khaola Brianna Notes Date Note Type Note Provider Name and Address Organization Details Recorded Time 09/24/2021 text/html Hector is a 55 Y O F presenting for mutiple complaints bruising: patient has noticed increased easy bruising. She does take daily aspirin. bruising is mainly on legs and arms. she hit her elbow a couple weeks ago and noticed bruising around entire elbow. elbow: still having pain in elbow with movements and on touch after hitting it on car door. She feels alose mobile bump that causes pain to touch. bruising has improved since happened. no weakness. rash: rash appeared over last week. rash is pruritic and new spots are appearing. She did travel to [place]. no others with similar rash. she has not changed any lotions, shampoos, detergents etc. denies working outdoors or exposure to poison carroll. Kacie Gudino MA [facility], [place] - [facility] 10/05/2021 12:30:32 12/23/2021 text/html Hector is a 56 Y O F presenting for anxiety and covid Patient went to hospital 2x since getting covid for migraine. On second visit she was given paxlovid which did interfere with medication. Since being released she has developed crippling anxiety that makes me wnt to crawl out of my skin. Patient has safety nets in place- supportive , family, etc. She will stay with family member until anxiety improves. She denies si/hi. EMILIA CELIS Attn: Accounting, [address] [facility], [place], [address], [facility] 12/31/2021 14:36:45 01/04/2023 text/html Hector is a 57 Y O F presenting for wellness and episode of anxiety a few weeks ago she experienced worsening anxiety with features of panic. She has been taking ashwagandha and feels episode is now under control. She cannot point to trigger and has been doing therapy techniques to control it. on chart review TSH is normal. She did stop her late-night coffee 4 weeks ago. Feels this has helped control GERD some. she does take pantoprazole prn. She c/o of occasional hot flashes with sweating. EMILIA CLEIS Attn: Accounting,[address] [facility], [place], [address], [facility] 01/05/2023 15:07:53 07/07/2023 text/html Pt presents with sore throat, L ear pain, and body aches x2 days. No known sick contacts. She did not take home COVID test. She has been taking ibuprofen w/o relief. Denies fevers, chills, cough, congestion, or rhinorrhea. States that she has chronic migraines, worse the past 2 days. No relief with prescription medication. Requesting short script of tylenol #3. EMILIA NAM Attn: Accounting, [address] [facility], [place], [address], [facility] 07/10/2023 17:06:28 04/04/2024 text/html Hector is a 58 Y O F pmhx obesity, prediabetes, hyperlipidemia and significant family history of CAD presenting for wellness patient would like to try zepbound for weight loss and to help control glucose. Patient denies fam hx of thyroid cancer, personal hx pancreatitis. anxiety: controlled on venlafaxine.headaches: following neurologypneumonia vaccine: agreesmammogram: duepap: due, she will schedule with obgyn EMILIA CELIS Attn: Accounting,[address] [facility], [place], [address], [place] - [facility] 04/04/2024 20:52:51 OBGyn Episode No OBEpisode recorded.
--- OUTSIDE RECORDS SUMMARY | 2024-08-31 01:43 | XMS_ITS | Clinical Summary ---
Author Organization [facility] Address [address] [place] [address] Care Team Providers Care Manager Placement Name Role Phone [facility], External Provider Primary Care Provider Un available Allergies Active Allergy Reactions Criticality Noted Date Comments Droperidol Other (See Comments) 07/07/2024 unknown Memantine Other (See Comments) 07/07/2024 unknown Metoclopramide Hcl Other (See Comments) 016 Reglan Nirmatrelvir-Ritonavir Delirium Medium 07/13/2024 Hallucinations/suic idal Prednisone Nausea and Vomiting Low 02/15/2018 Prochlorperazine Other (See Comments) High 4 STIFFNESS Pt states that jaw and neck muscles tighten up Muscle tightness Muscle tightness Compazine Medications benzonatate (TESSALON) 200 mg capsule Take 1 Capsule (200 mg) by mouth 3 times daily. 30 Capsule 07/07/2024 Active venlafaxine 150 mg Extended Release 24 hour tablet Take 150 mg by mouth late in the day. Active omeprazole (PriLOSEC) 20 mg Capsule, Delayed Release(E.C.) Take 20 mg by mouth daily. Active ASHWAGANDHA EXTRACT ORAL Take by mouth. Active diclofenac potassium (CAMBIA) 50 mg Powder in Packet powder Take 50 mg by mouth. Active Encounters Date Type Department Care Team Description 08/07/2024 External Device Data [facility] ABSTRACTION Provider, Abstract 08/07/2024 External Device Data [facility] ABSTRACTION Provider, Abstract 08/07/2024 External Device Data [facility] ABSTRACTION Provider, Abstract 07/31/2024 External Device Data [facility] ABSTRACTION Provider, Abstract 07/18/2024 External Device Data [facility] ABSTRACTION Provider, Abstract 07/17/2024 Telephone [facility] [address] [place] [phone] Bella Smith, FABIENNE Pathology Results 07/13/2024 2:15 PM CDT - 07/13/2024 11:59 PM CDT Hospital Encounter [facility] [address] [place] [phone] Jillian Vyas PA-C Discharge Disposition: Home or Self Care 07/13/2024 1:37 PM CDT - 07/13/2024 11:59 PM CDT Hospital Encounter [facility] [address] [facility] [address] [place] [phone] Jillian Vyas PA-C Discharge Disposition: Home or Self Care 07/13/2024 1:30 PM CDT - 07/13/2024 11:59 PM CDT Hospital Encounter [facility] [address] [facility] [address] [place] [phone] Jillian Vyas PA-C Discharge Disposition: Home or Self Care 07/11/2024 External Device Data [facility] ABSTRACTION Provider, Abstract 07/10/2024 External Device Data [facility] ABSTRACTION Provider, Abstract 07/10/2024 External Device Data [facility] ABSTRACTION Provider, Abstract 07/09/2024 External Device Data [facility] ABSTRACTION Provider, Abstract 07/09/2024 External Device Data [facility] ABSTRACTION Provider, Abstract 07/07/2024 6:53 PM OIL HOUSE ATTENDANT - 07/07/2024 10:38 PM OIL HOUSE ATTENDANT Emergency [facility] Emergency Department [address] [place] [phone] Costochondritis (Primary Dx); Intractable headache, unspecified chronicity pattern, unspecified headache type; Acute cough; Upper respiratory tract infection, unspecified type Discharge Disposition: Home or Self Care 07/07/2024 External Device Data ST[facility] ABSTRACTION Provider, Abstract 07/07/2024 External Device Data [facility] ABSTRACTION Provider, Abstract 07/04/2024 External Device Data [facility] ABSTRACTION Provider, Abstract 06/29/2024 10:00 AM OIL HOUSE ATTENDANT - 06/29/2024 11:59 PM OIL HOUSE ATTENDANT Hospital Encounter [facility] [address] [place] [phone] Jillian Vyas PA-C Discharge Disposition: Home or Self Care 06/20/2024 External Device Data ST[facility] ABSTRACTION Provider, Abstract 06/12/2024 External Device Data [facility] ABSTRACTION Provider, Abstract 06/12/2024 External Device Data [facility] ABSTRACTION Provider, Abstract 06/08/2024 11:18 AM OIL HOUSE ATTENDANT - 06/08/2024 11:59 PM OIL HOUSE ATTENDANT Hospital Encounter [facility] CT Scan [place] [address] [place] [phone] Jillian Vyas PA-C Discharge Disposition: Home or Self Care 06/08/2024 11:05 AM OIL HOUSE ATTENDANT - 06/08/2024 11:59 PM OIL HOUSE ATTENDANT Hospital Encounter [facility] Mammography Services [place] [address] [place] [phone] [facility], External Provider Discharge Disposition: Home or Self Care from Last 3 Months Social History Tobacco Use Types Packs/Day Years Used Date Smoking Tobacco: Never Assessed Feeling Safe Answer Date Recorded Are you in a relationship wi th someone who hurts you emotionally and/or physically? No 07/07/2024 Comments Unknown Sex and Gender Information Value Date Recorded Sex Assigned at Not on file Legal Sex Female 11:29 PM CDT Gender Identity Not on file Sexual Orientation Not on file Last Filed Vital Signs Vital Sign Reading Time Taken Comments Blood Pressure 119/85 07/13/2024 3:51 PM CDT Pulse 72 07/13/2024 3:51 PM CDT Temperature 36.3 C (97.4 F) 07/07/2024 5:45 PM OIL HOUSE ATTENDANT Respiratory Rate 16 07/13/2024 3:51 PM CDT Oxygen Saturation 100% 07/13/2024 3:51 PM CDT Inhaled Oxygen Concentration - - Weight 71.7 kg (158 lb) 07/07/2024 5:45 PM OIL HOUSE ATTENDANT Height 157.5 cm (5' 2 ) 07/07/2024 5:45 PM OIL HOUSE ATTENDANT Body Mass Index 28.9 07/07/2024 5:45 PM OIL HOUSE ATTENDANT Plan of Treatment Health Maintenance Due Date Last Done Comments Pre-Diabetes and Diabetes Screening 1965 DTAP/TDAP/TD VACCINES (1 - Tdap) 12/14/1986 HEPATITIS B VACCINES (1 of 3 - 19+ 3-dose series) 12/14/1986 HPV/Cotest (21-29) 12/14/1988 CERVICAL CANCER SCREENING 12/14/1997 HPV/Cotest (30-65) 12/14/1997 PAP SMEAR 12/14/1997 FIT-DNA Q 3 years 12/14/2012 FIT/FOBT Q 1 year 12/14/2012 Flex Sig/CT Colonography Q 5 years 12/14/2012 ZOSTER VACCINE (1 of 2) 12/14/2017 INFLUENZA VACCINE (#1) 2023 5, 05/17/2014, 02/16/2013, Additional history exists BREAST CANCER SCREENING 06/08/2025 06/08/19 25, 04/08/2023, 04/10/2021, Additional history exists COLORECTAL SCREENING 05/02/2027 05/02/2017 Colorectal Cancer Screening 05/02/2027 Medical Devices Implanted Type Area Tip Banding Machine Operator Device Identifier Shelf Expiration Date Model / Serial / Lot Clip-07/13/2024 Implanted:Qty: 1 on 07/13/2024 by Maria De Jesus Aden MD Clip Right: Breast 12/27/2026 [id number] / / [id number] Description:UltraClip. Heart. Clip-07/13/2024 Implanted:Qty: 1 on 07/13/2024 by Maria De Jesus Aden MD Clip Right: Breast 03/01/2025 SAVITA-MEGAN -13 / / [id number] Description:[id number] [place] Procedures Procedure Name Priority Date/Time Associated Diagnosis Comments MAMMO 3D DEBRA & STEREOTACTIC GUIDED BREAST BX RT Routine 07/13/2024 4:25 PM CDT Abnormal mammogram PATHOLOGY Pathology 07/13/2024 3:44 PM CDT MAMMO POST US/STEREO GUIDED PROCEDURE RT Routine 07/13/2024 2:35 PM CDT Abnormal mammogram PATHOLOGY Pathology 07/13/2024 2:24 PM CDT MAMMO BREAST US BIOPSY RIGHT Routine 07/13/2024 2:24 PM CDT Abnormal mammogram D-DIMER Stat 07/07/2024 9:04 PM OIL HOUSE ATTENDANT TROPONIN 2 HR, 5TH GEN Timed Study 07/07/2024 9:04 PM OIL HOUSE ATTENDANT EKG 12-LEAD Stat 07/07/2024 6:16 PM OIL HOUSE ATTENDANT TROPONIN BASELINE, 5TH GEN Stat 07/07/2024 6:15 PM OIL HOUSE ATTENDANT COMPREHENSIVE METABOLIC PANEL Stat 07/07/2024 6:15 PM OIL HOUSE ATTENDANT CBC WITH DIFFERENTIAL Stat 07/07/2024 6:15 PM OIL HOUSE ATTENDANT INFLUENZA A/B AND COVID-19 PCR PANEL Stat 07/07/2024 6:12 PM OIL HOUSE ATTENDANT RESPIRATORY PATHOGEN PCR PANEL Stat 07/07/2024 6:12 PM OIL HOUSE ATTENDANT XR CHEST PA AND LATERAL 2 VW Stat 07/07/2024 6:07 PM OIL HOUSE ATTENDANT MAMMO BREAST US RIGHT LTD Routine 06/29/2024 10:17 AM OIL HOUSE ATTENDANT Abnormal mammogram CT CORONARY CALCIUM SCORE Routine 06/08/2024 11:25 AM OIL HOUSE ATTENDANT Family history of ischemic heart disease MAMMO 3D DEBRA SCREEN BILAT W OR WO CAD Routine 06/08/2024 11:19 AM OIL HOUSE ATTENDANT Screening mammogram, encounter for from Last 3 Months Results * MAMMO 3D DEBRA & STEREOTACTIC GUIDED BREAST BX RT (07/13/2024 4:25 PM CDT) Anatomical Region Laterality Modality Breast Right Mammography Tissue SPECIMEN FROM BREAST / Unknown 07/13/2024 3:44 PM CDT Addenda Addendum by Maria De Jesus Aden MD on 07/16/2024 3:02 PM CDT Addendum: Pathology results ultrasound-guided biopsy of mass in the right breast demonstrate fat necrosis and giant cell reaction with no evidence of atypia or malignancy. Pathology and imaging are benign and concordant. Pathology results of stereotactic guided biopsy of mass in the right breast demonstrate fibrocystic changes with no evidence of atypia or malignancy. Pathology and imaging are benign and concordant. Continued annual screening mammography is recommended. Results and recommendations will be called to the patient. Impressions 07/13/2024 4:17 PM CDT IMPRESSION: 1. Ultrasound-guided biopsy of anterior right breast mass. 2. Stereotactic guided biopsy of posterior right breast mass. Addendum and recommendations will be issued upon receipt of pathology results. DICTATION LOCATION: [facility] 07/13/2024 4:17 PM CDT EXAM: 1. ULTRASOUND-GUIDED CORE BIOPSY OF THE RIGHT BREAST WITH TISSUE MARKER CLIP PLACEMENT 2. AFFIRM 3D STEREOTACTIC RIGHT BREAST BIOPSY WITH TISSUE MARKER CLIP PLACEMENT. 3. UNILATERAL DIGITAL MAMMOGRAM DATE: 07/13/2024 2:35 PM HISTORY: Right breast mass. PROCEDURE AND FINDINGS: Ultrasound-guided biopsy: The risks and potential benefits of the procedure were discussed with the patient and written informed consent was obtained. After sterile preparation of the skin, 1% lidocaine was utilized for local anesthesia. A 12-gauge core biopsy needle was advanced through the lesion of interest using sonographic guidance. A total of 3 tissue cores were obtained throughout the lesion. A heart tissue marker clip was then placed at the biopsy site. Hemostasis was achieved. A sterile bandage and an ice pack were applied. Initial postbiopsy images demonstrate remote placement of the tissue marker in relation to the originally targeted mass on mammogram. Therefore, additional ultrasound was performed in an attempt to identify the originally targeted mass on mammogram. Mass could not be confidently identified. Therefore, stereotactic guided biopsy was performed. Stereotactic guided biopsy: Informed written consent for stereotactic biopsy was obtained. The benefits and risks including hemorrhage, infection, and sampling error were discussed with the patient. A timeout procedure was performed. An Affirm 3D stereotactically-guided core biopsy for mass in the right breast was performed. The mass was targeted in CC from an inferior approach. The overlying skin was cleansed with a Betadine solution. 1% Lidocaine was injected for superficial and 1% lidocaine with epinephrine for deep anesthesia. A small 4 mm skin elyse was made with an 11 blade scalpel. Following the stereotactic coordinates, an 8 gauge vacuum-assisted needle was inserted through the skin elyse and positioned anterior to the calcifications. Pre fire images were obtained confirming accurate positioning. The system was then activated and multiple cores of tissue were obtained as additional 2% lidocaine with epinephrine was administered. A cork clip was successfully deployed. Pressure was held on the biopsy site until visible signs of bleeding had subsided. The incision was closed with a Steri-Strip. BREAST COMPOSITION: The breasts are heterogeneously dense, which may obscure small masses. Post biopsy mediolateral and craniocaudal views of the breast demonstrate heart clip in the upper outer more anterior right breast, corresponding to the sonographic mass. Core clip is present in the location of the mammographic mass more posterior and inferior in the right breast. A pressure dressing was applied. An icepack was given for comfort. Post biopsy instructions were reviewed with the patient. [facility]. Jillian Vyas PA-C MAMMO ORDERABLES Edite d Result - Final * PATHOLOGY (07/13/2024 3:44 PM CDT) Only the most recent of2 resultswithin the time period is included. CASE REPORT Surgical Pathology Report Case: [id number] Authorizing Provider: Maria De Jesus Aden MD Collected: 07/13/2024 03:44 PM Ordering Location: [facility] Received: 07/13/2024 04:10 PM [facility] Pathologist: Heriberto Worthy MD Specimen: Breast, right 07/16/2024 2:16 PM CDT [facility] FINAL DIAGNOSIS Breast, right, stereotactic-guided biopsy - Fibrocystic changes (cyst formation, stromal fibrosis) - No evidence of atypia or malignancy aw 07/16/2024 2:16 PM CDT [facility] at 1416 CDT GROSS DESCRIPTION A. The specimen is received in chambers in a formalin container, labeled with the patient's name and right breast . The chambers marked (A-E) hold multiple fragments of fibrofatty tissue, 2.0 x 2.0 x 0.4 cm, submitted in A1-A2, no ink. The chambers not marked do not contain tissue. Time to formalin fixation: 1 minute. Time of formalin fixation: 1535 on 07/13/24. Total formalin fixation time: 6 hours 25 minutes. 07/16/2024 2:16 PM CDT [facility] MICROSCOPIC DESCRIPTION Microscopic examination substantiates the diagnosis. Dr. Romero has reviewed this case and concurs. 07/16/2024 2:16 PM CDT [facility] OPERATIVE PROCEDURE core biopsy 07/16/2024 2:16 PM CDT [facility] CLINICAL INFORMATION mass (labelled stereo ) No Dx found. 07/16/2024 2:16 PM CDT [facility] COMMENT Immunohistochemical stains were performed, if any, and interpreted at [facility] ([facility]) Laboratory with appropriately staining controls. This test was developed and its performance characteristics determined by [facility] Lab. It has not been cleared or approved by the US Food and Drug Administration. The FDA does not require this test to go through premarket FDA review. This test is used for clinical purposes, and should not be regarded as investigational or for research. This lab is certified under CLIA to perform high complexity testing. Estrogen and progesterone receptor staining has not been validated in our lab on decalcified tissue; decalcification may decrease immunoreactivity for these and other antigens. 07/16/2024 2:16 PM CDT [facility] Tissue RIGHT BREAST STRUCTURE / Unknown Collection / Unknown 07/13/2024 3:44 PM CDT 07/13/2024 4:10 PM CDT us Maria De Jesus Aden MD PATHOLOGY/CYTOLOGY ORDERAB LES Final Result [facility] CLIA# [id number] [place] [address] * MAMMO POST US/STEREO GUIDED PROCEDURE RT (07/13/2024 2:35 PM CDT) Anatomical Region Laterality Modality Breast Right Mammography 07/13/2024 2:35 PM CDT Addenda Addendum by Maria De Jesus Aden MD on 07/16/2024 3:02 PM CDT Addendum: Pathology results ultrasound-guided biopsy of mass in the right breast demonstrate fat necrosis and giant cell reaction with no evidence of atypia or malignancy. Pathology and imaging are benign and concordant. Pathology results of stereotactic guided biopsy of mass in the right breast demonstrate fibrocystic changes with no evidence of atypia or malignancy. Pathology and imaging are benign and concordant. Continued annual screening mammography is recommended. Results and recommendations will be called to the patient. Impressions 07/13/2024 4:17 PM CDT IMPRESSION: 1. Ultrasound-guided biopsy of anterior right breast mass. 2. Stereotactic guided biopsy of posterior right breast mass. Addendum and recommendations will be issued upon receipt of pathology results. DICTATION LOCATION: [facility] 07/13/2024 4:17 PM CDT EXAM: 1. ULTRASOUND-GUIDED CORE BIOPSY OF THE RIGHT BREAST WITH TISSUE MARKER CLIP PLACEMENT 2. AFFIRM 3D STEREOTACTIC RIGHT BREAST BIOPSY WITH TISSUE MARKER CLIP PLACEMENT. 3. UNILATERAL DIGITAL MAMMOGRAM DATE: 07/13/2024 2:35 PM HISTORY: Right breast mass. PROCEDURE AND FINDINGS: Ultrasound-guided biopsy: The risks and potential benefits of the procedure were discussed with the patient and written informed consent was obtained. After sterile preparation of the skin, 1% lidocaine was utilized for local anesthesia. A 12-gauge core biopsy needle was advanced through the lesion of interest using sonographic guidance. A total of 3 tissue cores were obtained throughout the lesion. A heart tissue marker clip was then placed at the biopsy site. Hemostasis was achieved. A sterile bandage and an ice pack were applied. Initial postbiopsy images demonstrate remote placement of the tissue marker in relation to the originally targeted mass on mammogram. Therefore, additional ultrasound was performed in an attempt to identify the originally targeted mass on mammogram. Mass could not be confidently identified. Therefore, stereotactic guided biopsy was performed. Stereotactic guided biopsy: Informed written consent for stereotactic biopsy was obtained. The benefits and risks including hemorrhage, infection, and sampling error were discussed with the patient. A timeout procedure was performed. An Affirm 3D stereotactically-guided core biopsy for mass in the right breast was performed. The mass was targeted in CC from an inferior approach. The overlying skin was cleansed with a Betadine solution. 1% Lidocaine was injected for superficial and 1% lidocaine with epinephrine for deep anesthesia. A small 4 mm skin elyse was made with an 11 blade scalpel. Following the stereotactic coordinates, an 8 gauge vacuum-assisted needle was inserted through the skin elyse and positioned anterior to the calcifications. Pre fire images were obtained confirming accurate positioning. The system was then activated and multiple cores of tissue were obtained as additional 2% lidocaine with epinephrine was administered. A cork clip was successfully deployed. Pressure was held on the biopsy site until visible signs of bleeding had subsided. The incision was closed with a Steri-Strip. BREAST COMPOSITION: The breasts are heterogeneously dense, which may obscure small masses. Post biopsy mediolateral and craniocaudal views of the breast demonstrate heart clip in the upper outer more anterior right breast, corresponding to the sonographic mass. Core clip is present in the location of the mammographic mass more posterior and inferior in the right breast. A pressure dressing was applied. An icepack was given for comfort. Post biopsy instructions were reviewed with the patient. She left the [facility] in good condition. us Jillian Vyas PA-C MAMMO ORDERABLES Edite d Result - Final * MAMMO BREAST US BIOPSY RIGHT (07/13/2024 2:24 PM CDT) Anatomical Region Laterality Modality Breast Right Ultrasound Tissue SPECIMEN FROM BREAST / Unknown 07/13/2024 2:26 PM CDT Addenda Addendum by Maria De Jesus Aden MD on 07/16/2024 3:02 PM CDT Addendum: Pathology results ultrasound-guided biopsy of mass in the right breast demonstrate fat necrosis and giant cell reaction with no evidence of atypia or malignancy. Pathology and imaging are benign and concordant. Pathology results of stereotactic guided biopsy of mass in the right breast demonstrate fibrocystic changes with no evidence of atypia or malignancy. Pathology and imaging are benign and concordant. Continued annual screening mammography is recommended. Results and recommendations will be called to the patient. Impressions 07/13/2024 4:17 PM CDT IMPRESSION: 1. Ultrasound-guided biopsy of anterior right breast mass. 2. Stereotactic guided biopsy of posterior right breast mass. Addendum and recommendations will be issued upon receipt of pathology results. DICTATION LOCATION: [facility] 07/13/2024 4:17 PM CDT EXAM: 1. ULTRASOUND-GUIDED CORE BIOPSY OF THE RIGHT BREAST WITH TISSUE MARKER CLIP PLACEMENT 2. AFFIRM 3D STEREOTACTIC RIGHT BREAST BIOPSY WITH TISSUE MARKER CLIP PLACEMENT. 3. UNILATERAL DIGITAL MAMMOGRAM DATE: 07/13/2024 2:35 PM HISTORY: Right breast mass. PROCEDURE AND FINDINGS: Ultrasound-guided biopsy: The risks and potential benefits of the procedure were discussed with the patient and written informed consent was obtained. After sterile preparation of the skin, 1% lidocaine was utilized for local anesthesia. A 12-gauge core biopsy needle was advanced through the lesion of interest using sonographic guidance. A total of 3 tissue cores were obtained throughout the lesion. A heart tissue marker clip was then placed at the biopsy site. Hemostasis was achieved. A sterile bandage and an ice pack were applied. Initial postbiopsy images demonstrate remote placement of the tissue marker in relation to the originally targeted mass on mammogram. Therefore, additional ultrasound was performed in an attempt to identify the originally targeted mass on mammogram. Mass could not be confidently identified. Therefore, stereotactic guided biopsy was performed. Stereotactic guided biopsy: Informed written consent for stereotactic biopsy was obtained. The benefits and risks including hemorrhage, infection, and sampling error were discussed with the patient. A timeout procedure was performed. An Affirm 3D stereotactically-guided core biopsy for mass in the right breast was performed. The mass was targeted in CC from an inferior approach. The overlying skin was cleansed with a Betadine solution. 1% Lidocaine was injected for superficial and 1% lidocaine with epinephrine for deep anesthesia. A small 4 mm skin elyse was made with an 11 blade scalpel. Following the stereotactic coordinates, an 8 gauge vacuum-assisted needle was inserted through the skin elyse and positioned anterior to the calcifications. Pre fire images were obtained confirming accurate positioning. The system was then activated and multiple cores of tissue were obtained as additional 2% lidocaine with epinephrine was administered. A cork clip was successfully deployed. Pressure was held on the biopsy site until visible signs of bleeding had subsided. The incision was closed with a Steri-Strip. BREAST COMPOSITION: The breasts are heterogeneously dense, which may obscure small masses. Post biopsy mediolateral and craniocaudal views of the breast demonstrate heart clip in the upper outer more anterior right breast, corresponding to the sonographic mass. Core clip is present in the location of the mammographic mass more posterior and inferior in the right breast. A pressure dressing was applied. An icepack was given for comfort. Post biopsy instructions were reviewed with the patient. She left the [facility] in good condition. Jillian Vyas PA-C MAMMO ORDERABLES Edite d Result - Final * TROPONIN 2 HR, 5TH GEN (07/07/2024 9:04 PM OIL HOUSE ATTENDANT) Pathologist [facility] TROPONIN T, 2 HR 5TH GEN <6 <=10 ng/L 07/07/2024 10:00 PM OIL HOUSE ATTENDANT [facility] Access Scientific [facility] Blood Venipuncture / Unknown 07/07/2024 9:04 PM OIL HOUSE ATTENDANT 07/07/2024 9:23 PM OIL HOUSE ATTENDANT [facility] [employer] [facility] - 07/07/2024 10:00 PM OIL HOUSE ATTENDANT Troponin Undetectable Delay in collection of timed specimen beyond recommended collection interval. Results must be interpreted in clinical context. Unable to calculate delta. Braeden Sunny FINISHER HAND CHEMISTRY ORDERABLES Final Resu lt [facility] [employer] [facility] CLIA# [id number] [place] [address] * D-DIMER (07/07/2024 9:04 PM OIL HOUSE ATTENDANT) Pathologist [facility] D-DIMER QUANT <0.27 <0.50 ug/mL FEU 07/07/2024 10:19 PM OIL HOUSE ATTENDANT [facility] [employer] [facility] Blood Venipuncture / Unknown 07/07/2024 9:04 PM OIL HOUSE ATTENDANT 07/07/2024 9:17 PM OIL HOUSE ATTENDANT [facility] Access Scientific [facility] - 07/07/2024 10:19 PM OIL HOUSE ATTENDANT D-Dimer assay cutoff value for exclusion of DVT and/or PE is <0.50 ug/mL FEU. As D-Dimer levels increase naturally with age, age stratification for patients over 50 is potentially more appropriate in determining whether a patient should undergo further evaluation for DVT and/or PE than a general cutoff of 0.50 ug/mL FEU. Clinical consideration is recommended. Age Stratified Cutoff Values: 50-60 years: 0.50-0.60 ug/mL FEU 61-70 years: 0.61-0.70 ug/mL FEU 71-80 years: 0.71-0.80 ug/mL FEU us Braeden Correa FINISHER HAND HEMATOLOGY ORDERABLES Final Res ult [facility] - [facility] CLIA# [id number] [address] [place] [address] * EKG 12-LEAD (07/07/2024 6:16 PM OIL HOUSE ATTENDANT) 07/07/2024 6:16 PM OIL HOUSE ATTENDANT Narrative INTERFACE SYSTEM - 07/07/2024 10:13 PM [place] [address] Test Date: 2024-07-07 Pat Name: TYREL REED Department: 92 Room: Gender: Female Patient Portal Concierge: PHILLIP : 1965 Requested By: Order Number: [id number] Reading MD: Jameson Byrd Measurements Intervals Mobile Rate: 112 P: 46 MA: 148 QRS: 6 QRSD: 68 T: 40 QT: 310 QTc: 423 Interpretive Statements Sinus tachycardia Otherwise normal ECG Compared to ECG 12/21/2013 08:36:15 No significant changes Electronically Signed On 07-07-2024 22:13:32 OIL HOUSE ATTENDANT by Jameson Byrd Procedure Note Provider, Historical - 07/07/2024 [place] [address] Test Date: 2024-07-07 Pat Name: TYREL REED Department: 92 Room: Gender: Female Patient Portal Concierge: PHILLIP : 1965 Requested By: Order Number: [id number] Reading MD: Jameson Byrd Measurements Intervals Mobile Rate: 112 P: 46 MA: 148 QRS: 6 QRSD: 68 T: 40 QT: 310 QTc: 423 Interpretive Statements Sinus tachycardia Otherwise normal ECG Compared to ECG 12/21/2013 08:36:15 No significant changes Electronically Signed On 07-07-2024 22:13:32 OIL HOUSE ATTENDANT by Jameson Byrd us Protocol [facility] MD ECG ORDERABLES Final Result INTERFACE SYSTEM Refer to clinic/hospital department * TROPONIN BASELINE, 5TH GEN (07/07/2024 6:15 PM OIL HOUSE ATTENDANT) Pathologist [facility] TROPONIN T, BASELINE 5TH GEN <6 <=10 ng/L 07/07/2024 8:04 PM OIL HOUSE ATTENDANT [facility] Access Scientific [facility] Blood Venipuncture / Unknown 07/07/2024 6:15 PM OIL HOUSE ATTENDANT 07/07/2024 6:26 PM OIL HOUSE ATTENDANT Narrative [facility] - 07/07/2024 8:04 PM OIL HOUSE ATTENDANT Troponin Undetectable us Braeden JOYP CHEMISTRY ORDERABLES Final Resu lt [facility] Access [employer] [facility] CLIA# [id number] [place] [address] * (ABNORMAL) CBC WITH DIFFERENTIAL (07/07/2024 6:15 PM OIL HOUSE ATTENDANT) Pathologist [facility] WBC 5.8 4.0 - 9.8 K/uL 07/07/2024 6:[address] [facility] Access Scientific [facility] RBC 4.64 3.90 - 4.90 M/uL 07/07/2024 6:[address] [facility] Access Scientific [facility] HEMOGLOBIN 13.1 11.8 - 14.8 g/dL 07/07/2024 6:[address] [facility] Access Scientific [facility] HEMATOCRIT 39.6 35.5 - 44.0 % 07/07/2024 6:[address] [facility] Access Scientific [facility] MCV 85.3 82.0 - 99.0 fL 07/07/2024 6:[address] [facility] Access Scientific [facility] MCH 28.2 27.2 - 32.6 pg 07/07/2024 6:35 PM OIL HOUSE ATTENDANT [facility] MCHC 33.1 31.5 - 35.5 g/dL 07/07/2024 6:35 PM OIL HOUSE ATTENDANT [facility] RDW 13.2 11.5 - 14.5 % 07/07/2024 6:35 PM OIL HOUSE ATTENDANT [facility] RDW-STDEV 41.3 37.1 - 48.7 fL 07/07/2024 6:35 PM OIL HOUSE ATTENDANT [facility] PLATELETS 173 140 - 350 K/uL 07/07/2024 6:35 PM OIL HOUSE ATTENDANT [facility] MPV 9.9 9.3 - 12.4 fL 07/07/2024 6:35 PM OIL HOUSE ATTENDANT [facility] NEUTROPHILS 83 % 07/07/2024 6:35 PM OIL HOUSE ATTENDANT [facility] LYMPHOCYTES 8 % 07/07/2024 6:35 PM OIL HOUSE ATTENDANT [facility] MONOCYTES 8 % 07/07/2024 6:35 PM OIL HOUSE ATTENDANT [facility] EOSINOPHILS 0 % 07/07/2024 6:35 PM OIL HOUSE ATTENDANT [facility] BASOPHILS 0 % 07/07/2024 6:35 PM OIL HOUSE ATTENDANT [facility] IMMATURE GRANULOCYTES 0 % 07/07/2024 6:[address] [facility] NEUTROPHIL ABSOLUTE 4.85 1.90 - 7.00 K/uL 07/07/2024 6:35 PM OIL HOUSE ATTENDANT [facility] LYMPHOCYTE ABSOLUTE 0.47(L) 0.70 - 4.50 K/uL 07/07/2024 6:35 PM OIL HOUSE ATTENDANT [facility] MONOCYTE ABSOLUTE 0.46 0.10 - 1.30 K/uL 07/07/2024 6:35 PM OIL HOUSE ATTENDANT [facility] EOSINOPHIL ABSOLUTE 0.02 0.00 - 0.70 K/uL 07/07/2024 6:35 PM OIL HOUSE ATTENDANT [facility] BASOPHILS ABSOLUTE 0.02 0.00 - 0.20 K/uL 07/07/2024 6:35 PM OIL HOUSE ATTENDANT [facility] IMMATURE GRANULOCYTES ABSOLUTE 0.01 0.00 - 0.03 K/uL 07/07/2024 6:[address] [facility] Access Scientific [facility] Blood Venipuncture / Unknown 07/07/2024 6:15 PM OIL HOUSE ATTENDANT 07/07/2024 6:35 PM OIL HOUSE ATTENDANT us Protocol [facility] MD HEMATOLOGY ORDERABLES Final Result [facility] CLIA# [id number] [address] [place] [address] * (ABNORMAL) COMPREHENSIVE METABOLIC PANEL (07/07/2024 6:15 PM OIL HOUSE ATTENDANT) SODIUM 136 136 - 145 mmol/L 07/07/2024 6:55 PM [facility] POTASSIUM 3.9 3.4 - 5.1 mmol/L 07/07/2024 6:55 PM [facility] CHLORIDE 99 98 - 107 mmol/L 07/07/2024 6:55 PM [facility] CO2 24 22 - 29 mmol/L 07/07/2024 6:55 PM [facility] CALCIUM 9.5 8.6 - 10.4 mg/dL 07/07/2024 6:55 PM [facility] BUN 12 6 - 20 mg/dL 07/07/2024 6:55 PM [facility] CREATININE 0.76 0.51 - 0.95 mg/dL 07/07/2024 6:[address] [facility] Access Scientific [facility] GLUCOSE 104(H) 74 - 99 mg/dL 07/07/2024 6:55 PM [facility] TOTAL PROTEIN 8.1 6.3 - 8.7 g/dL 07/07/2024 6:55 PM [facility] ALBUMIN 4.7 3.5 - 5.2 g/dL 07/07/2024 6:[address] [facility] Access Scientific [facility] BILIRUBIN TOTAL 0.4 0.3 - 1.2 mg/dL 07/07/2024 6:[address] [facility] Access Scientific [facility] ALKALINE PHOSPHATASE 81 40 - 150 U/L 07/07/2024 6:55 PM [facility] AST 23 0 - 33 U/L 07/07/2024 6:55 PM [facility] ALT 20 0 - 33 U/L 07/07/2024 6:55 PM [facility] GFR >60 >=60 mL/min/1.7 3 sq meter 07/07/2024 6:55 PM [facility] Comment:eGFR calculated with 2020 CKD-EPI equation. Vegetarian diet, extremely high or low muscle mass, and may affect results. Cystatin C with Glomerular Filtration Rate is a suitable alternative for these patients. ANION GAP 13 8 - 16 mmol/L 07/07/2024 6:55 PM OIL HOUSE ATTENDANT [facility] Blood Venipuncture / Unknown 07/07/2024 6:15 PM OIL HOUSE ATTENDANT 07/07/2024 6:26 PM OIL HOUSE ATTENDANT us Protocol [facility] MD CHEMISTRY ORDERABLES Final Result [facility] CLIA# [id number] [place] [address] * INFLUENZA A/B AND COVID-19 PCR PANEL (07/07/2024 6:12 PM OIL HOUSE ATTENDANT) [facility] Influenza A by PCR NOT DETECTED Not Detected 07/07/2024 7:16 PM OIL HOUSE ATTENDANT [facility] Influenza B by PCR NOT DETECTED Not Detected 07/07/2024 7:16 PM OIL HOUSE ATTENDANT [facility] COVID-19 PCR NOT DETECTED Not Detected 07/08/19 7:16 PM OIL HOUSE ATTENDANT [facility] Upper Respiratory ENTIRE NASOPHARYNX / Unknown Collection / Unknown 07/07/2024 6:12 PM OIL HOUSE ATTENDANT 07/07/2024 6:25 PM OIL HOUSE ATTENDANT Narrative [facility] - 07/07/2024 7:16 PM OIL HOUSE ATTENDANT This test has been authorized by the FDA under an Emergency Use Authorization for use by authorized laboratories. This test has been validated in accordance with the FDA's guidance regarding Coronavirus Disease-2019 testing. Optimum specimen types and timing for peak viral levels during infection have not been determined. A negative RT-PCR result does not rule out infection with the 2019-Novel Coronavirus. Protocol [facility] MICROBIOLOGY - GENERA L ORDERABLES Final Result Performing Organization Address City/[facility]/ZIP Co de Phone Number [facility]# [id number] [place] [address] * RESPIRATORY PATHOGEN PCR PANEL (07/07/2024 6:12 PM OIL HOUSE ATTENDANT) [facility] Respiratory Pathogen PCR Panel NOT DETECTED No respiratory pathogen nucleic acids detected. 07/07/2024 8:20 PM OIL HOUSE ATTENDANT [facility] COVID-19 PCR NOT DETECTED Not Detected 07/07/2024 8:20 PM OIL HOUSE ATTENDANT [facility] Upper Respiratory ENTIRE NASOPHARYNX / Unknown Collection / Unknown 07/07/2024 6:12 PM OIL HOUSE ATTENDANT 07/07/2024 6:25 PM OIL HOUSE ATTENDANT Narrative [facility] - 07/07/2024 8:20 PM OIL HOUSE ATTENDANT The Film Array Respiratory Panel (RP2.1) is a multiplex nucleic acid detection test for 22 targets. Viruses: Adenovirus Coronavirus HKU1, NL63, 229E, and OC43 COVID-19/Severe Acute Respiratory Syndrome Coronavirus 2 Influenza A with the following subtypes: H1, H1-2009, and H3 Influenza B Human Metapneumovirus Parainfluenza virus 1, 2, 3, and 4 Respiratory Syncytial virus (RSV) Rhinovirus/Enterovirus (cannot differentiate due to genetic similarities) Bacteria: Bordetella pertussis Bordetella parapertussis Chlamydophila pneumoniae Mycoplasma pneumoniae us Braeden FRENCH MICROBIOLOGY - GENERAL ORDERABL ES Final Result Performing Organization Address City/[facility]/ZIP Co de Phone Number [facility]# [id number] [place] [address] * XR CHEST PA AND LATERAL 2 VW (07/07/2024 6:07 PM OIL HOUSE ATTENDANT) Anatomical Region Laterality Modality Chest Computed Radiogr aphy 07/07/2024 6:08 PM OIL HOUSE ATTENDANT Impressions 07/07/2024 6:12 PM OIL HOUSE ATTENDANT IMPRESSION: No acute cardiopulmonary process. DICTATION LOCATION: [address] Narrative 07/07/2024 6:12 PM OIL HOUSE ATTENDANT XR CHEST PA AND LATERAL 2 VW DATE: 07/07/2024 6:07 PM HISTORY: Fever. COMPARISON: 01/30/2009 FINDINGS: AP and lateral views of the chest are provided. The lungs are clear. No pneumothorax, pleural effusion, or focal consolidation is seen. No pulmonary edema is seen. Heart size is stable. Procedure Note Lizzeth Stringer MD - 07/07/2024 XR CHEST PA AND LATERAL 2 VW DATE: 07/07/2024 6:07 PM HISTORY: Fever. COMPARISON: 01/30/2009 FINDINGS: AP and lateral views of the chest are provided. The lungs are clear. No pneumothorax, pleural effusion, or focal consolidation is seen. No pulmonary edema is seen. Heart size is stable. IMPRESSION: No acute cardiopulmonary process. DICTATION LOCATION: [address] us Protocol [facility] MD DIAGNOSTIC IMAGING OR DERABLES Final Result * (ABNORMAL) MAMMO BREAST US RIGHT LTD (06/29/2024 10:17 AM OIL HOUSE ATTENDANT) Anatomical Region Laterality Modality Right Ultrasound 06/29/2024 10:1 7 AM OIL HOUSE ATTENDANT Impressions 06/29/2024 11:24 AM OIL HOUSE ATTENDANT IMPRESSION: Indeterminate mass. ASSESSMENT: BI-RADS 4: Suspicious abnormality, biopsy should be considered. RECOMMENDATION: Ultrasound guided cyst aspiration and/or biopsy which was discussed with the patient. DICTATION LOCATION: [facility] Narrative 06/29/2024 11:24 AM OIL HOUSE ATTENDANT ULTRASOUND RIGHT BREAST LIMITED Indication: Focal asymmetry right outer breast 10 cm from the nipple. Technique: Focused salcido scale and color images. Findings: In the right breast 10:00 position 10 cm from the nipple there is a hypoechoic round not circumscribed mass with some indistinct margins and posterior acoustic shadowing. us Jillian Briscoeas PA-C MAMMO ORDERABLES Final Result * CT CORONARY CALCIUM SCORE (06/08/2024 11:25 AM OIL HOUSE ATTENDANT) 06/08/2024 11:1 8 AM OIL HOUSE ATTENDANT Impressions INTERFACE SYSTEM - 06/08/2024 11:34 AM OIL HOUSE ATTENDANT IMPRESSION: Agatston Calcium Score: Agatston Calcium Score: 0 consistent with very low risk for future cardiac events. The Agatston Coronary Calcium Score is one of several screening factors that may be used to predict coronary artery disease. Please consult your healthcare provider to learn whether further evaluation of your cardiac risk is necessary. Ascending Aorta: 3.0 cm Normal: < 4 cm diameter Aortic ectasia: > 4.0 and <= 4.5 cm Aortic aneurysm: >= 4.5 cm Other findings: None. Dictated by Dr. Chandra Burgos DICTATION LOCATION: [address] [place] [address] INTERFACE SYSTEM - 06/08/2024 11:34 AM OIL HOUSE ATTENDANT CT CARDIAC SCORING - Coronary Artery Calcium (CAC) Score. DATE: 06/08/2024 11:25 AM HISTORY: Family history of ischemic heart disease. Atherosclerotic cardiovascular disease (ASCVD) risk stratification. Procedure: A standard prospective cardiac-gated CAC scoring protocol was used for image acquisition on a Mccrory 80-slice CT scanner. CAC scan was interpreted using the Agatston's Scoring formula. An age/sex/race-adjusted score percentile was derived by comparison of the score with Multi-Ethnic Study of Atherosclerosis (MERINO) reference population. The examination was performed with the adjustment of mA according to the patient size and/or the use of Iterative Reconstruction Technique. CT Dose Length Product (DLP): 75.16 mGy-cm. Technical Quality: Satisfactory. Pericardium: Normal. Aortic Valve: No calcification. Ascending Aorta: 3.0 cm. Thoracic Aorta: No calcification. Mitral Annulus: No calcification. Other findings: The lower lung law, breasts and skeletal structures are unremarkable. Total Agatston CAC Score: 0 Left main: 0 LAD: 0 LCX: 0 RCA: 0 PDA: 0 No further evaluation is recommended Left main and/or multi-vessel coronary calcifications per Usefulness of regional distribution of coronary artery calcium to improve the prediction of all-cause mortality. Alycia-Shamika R et al. Am J Cardiol. 2015 August 30;115:6225-4682. CAC-DRS Category: A 0 N 0 A = Agatston Scoring N = Number of Vessels CAC-DRS: Coronary Artery Calcium Data and Reporting System. An expert consensus Document of the Society of Cardiovascular Computed Tomography (SCCT). J Cardiovasc Comp Luis Felipe; 12 (2018):185-191. Score: 0 Agatston's Score: 0 No identifiable atherosclerotic plaque. Cardiac Risk: Very low risk of significant CAD. Score: 1 Agatston's Score: 1-99 Moderate degree of identifiable plaque. Cardiac Risk: Mild or minimal coronary stenosis likely. Score: 2 Agatston's Score: 100-299 Moderate degree of identifiable plaque. Cardiac Risk: Moderately increased risk of significant CAD. Score: 3 Agatston's Score: > 300 Extensive calcified plaque. Cardiac Risk: Severely increased risk of significant CAD. Procedure Note Chandra Burgos MD - 06/08/2024 CT CARDIAC SCORING - Coronary Artery Calcium (CAC) Score. DATE: 06/08/2024 11:25 AM HISTORY: Family history of ischemic heart disease. Atherosclerotic cardiovascular disease (ASCVD) risk stratification. Procedure: A standard prospective cardiac-gated CAC scoring protocol was used for image acquisition on a Lucio 80-slice CT scanner. CAC scan was interpreted using the Agatston's Scoring formula. An age/sex/race-adjusted score percentile was derived by comparison of the score with Multi-Ethnic Study of Atherosclerosis (MERINO) reference population. The examination was performed with the adjustment of mA according to the patient size and/or the use of Iterative Reconstruction Technique. CT Dose Length Product (DLP): 75.16 mGy-cm. Technical Quality: Satisfactory. Pericardium: Normal. Aortic Valve: No calcification. Ascending Aorta: 3.0 cm. Thoracic Aorta: No calcification. Mitral Annulus: No calcification. Other findings: The lower lung law, breasts and skeletal structures are unremarkable. Total Agatston CAC Score: 0 Left main: 0 LAD: 0 LCX: 0 RCA: 0 PDA: 0 No further evaluation is recommended Left main and/or multi-vessel coronary calcifications per Usefulness of regional distribution of coronary artery calcium to improve the prediction of all-cause mortality. Annette Ramirez et al. Am J Cardiol. 2015 August 30;115:1560-1950. CAC-DRS Category: A 0 N 0 A = Agatston Scoring N = Number of Vessels CAC-DRS: Coronary Artery Calcium Data and Reporting System. An expert consensus Document of the Society of Cardiovascular Computed Tomography (SCCT). J Cardiovasc Comp Luis Felipe; 12 (2018):185-191. Score: 0 Agatston's Score: 0 No identifiable atherosclerotic plaque. Cardiac Risk: Very low risk of significant CAD. Score: 1 Agatston's Score: 1-99 Moderate degree of identifiable plaque. Cardiac Risk: Mild or minimal coronary stenosis likely. Score: 2 Agatston's Score: 100-299 Moderate degree of identifiable plaque. Cardiac Risk: Moderately increased risk of significant CAD. Score: 3 Agatston's Score: > 300 Extensive calcified plaque. Cardiac Risk: Severely increased risk of significant CAD. IMPRESSION: Agatston Calcium Score: Agatston Calcium Score: 0 consistent with very low risk for future cardiac events. The Agatston Coronary Calcium Score is one of several screening factors that may be used to predict coronary artery disease. Please consult your healthcare provider to learn whether further evaluation of your cardiac risk is necessary. Ascending Aorta: 3.0 cm Normal: < 4 cm diameter Aortic ectasia: > 4.0 and <= 4.5 cm Aortic aneurysm: >= 4.5 cm Other findings: None. Dictated by Dr. Chandra Burgos DICTATION LOCATION: [address] Vyas PA-C CT ORDERABLES Final Result INTERFACE SYSTEM Refer to clinic/hospital department * MAMMO 3D DEBRA SCREEN BILAT W OR WO CAD (06/08/2024 11:19 AM OIL HOUSE ATTENDANT) Anatomical Region Laterality Modality Breast Bilateral Mammography 06/08/2024 11:2 0 AM OIL HOUSE ATTENDANT Impressions 06/08/2024 11:41 AM OIL HOUSE ATTENDANT IMPRESSION: Focal asymmetry right breast 8:00 10 cm from the nipple RECOMMENDATIONS: Focused ultrasound right breast with possible additional mammographic images DICTATION LOCATION: [facility] 06/08/2024 11:41 AM OIL HOUSE ATTENDANT BILATERAL FULL-FIELD DIGITAL SCREENING MAMMOGRAM WITH CAD WITH 3D TOMOSYNTHESIS DATE: 06/08/2024 11:19 AM HISTORY: Routine screening. TECHNIQUE: Full-field digital craniocaudal and mediolateral oblique projections of both breasts were obtained. Low-dose full-field digital breast tomosynthesis examination was performed with 2D and 3D acquisitions. Examination is read in conjunction with computer aided detection. COMPARISON: 2022, 2020, 2017 BREAST COMPOSITION: The breasts are heterogeneously dense, which may obscure small masses. FINDINGS: Focal asymmetry is seen in the right breast at 8:00 measuring approximately 1 cm and is 10 cm from the nipple. Some of the margins are circumscribed and others are obscured. No suspicious microcalcifications or architectural distortion in either breast. OVERALL FINAL ASSESSMENT: BI-RADS CATEGORY 0: Incomplete, needs additional imaging evaluation us Jillian Vyas PA-C MAMMO ORDERABLES Final Result from Last 3 Months Insurance BCBS BLUE ACCESS/TRUE BLUE PPO Care Teams Manager Placement Relationship Specialty Start Date End Date [facility], External Provider [id number] [place] [address] PCP - General 04/10/21
[2024-08-31 10:24] VITALS: BP 139/86; PULSE 77; RESP 20; TEMP 36.1; O2SAT 99
--- NOTE | 2024-08-31 10:34 | WPDANESEPPF ---
Anes - Initial Pre Proc Eval Procedure: Operation Date: 08/31/24 11:30 Proposed Procedures p Esophagogastroduodenoscopy - Kaiden Johnston MD Date/Time: 08/31/24 10:34 Surgeon: Kaiden Johnston MD Pre Op Diagnosis: GERD Patient Data Age: 58 Gender: F Height: 1.57 m Weight: 71.4 kg Last Vital Signs Temp 36.1 C L 08/31/24 10:24 Pulse 77 08/31/24 10:24 Resp 20 08/31/24 10:24 BP 139/86 08/31/24 10:24 Pulse Ox 99 08/31/24 10:24 O2 Del Method Room Air 08/31/24 10:24 Allergies Allergy/AdvReac Type Severity Reaction Status Date / Time prochlorperazine (From AdvReac Muscle Pain Verified 08/31/24 10:22 Compazine) Home Medications ?Medication ?Instructions ?Recorded ?Confirmed ?Type ashwagandha extract 120 mg capsule 400 mg PO DAILY 08/28/24 08/31/24 History buspirone 10 mg tablet 10 mg PO BID 08/28/24 08/31/24 History diclofenac potassium 50 mg oral 50 mg PO ONCE 08/28/24 08/31/24 History powder packet (Cambia) omeprazole 20 mg capsule,delayed 20 mg PO DAILY 08/28/24 08/31/24 History release ondansetron 4 mg disintegrating 4 mg PO DAILY PRN nausea and 08/28/24 08/28/24 History tablet vomiting venlafaxine 37.5 mg 37.5 mg PO DAILY 08/28/24 08/31/24 History capsule,extended release 24 hr venlafaxine 75 mg capsule,extended 75 mg PO DAILY 08/28/24 08/31/24 History release 24 hr zolpidem 5 mg tablet 5 mg PO DAILY PRN insomnia 08/28/24 08/28/24 History Patient hx anesthesia problems: none Family hx anesthesia problems: none Results Review: All pre-operative results and documents have been reviewed as part of the pre-operative evaluation. [facility] Past Medical History Medical History (Updated 08/30/24 @ 15:22 by Yuriy Love DO) Anxiety GERD (gastroesophageal reflux disease) Social History Social History Smoking status: Never smoker Alcohol intake: never Substance use: current Substance use type: marijuana Other substance usage details: Takes THC for migraines Last use: 08/24/24 Living arrangements: with family Spiritual care concerns: No Anes - Eval Final PreProcedure Day of Procedure 08/31/24 10:34 Patient weight: overweight Heart: regular rate and rhythm Lungs: clear to auscultation Airway: Mallampati scale class II Neurological: alert and oriented Last oral intake: >/= 8 hours ASA classification: II Emergent: no Anesthetic plan: proceed Anesthesia type and monitoring: general GIVS and standard monitoring Results Review: All pre-operative results and documents have been reviewed as part of the pre-operative evaluation. Informed Consent: The patient's anesthetic plan and its attendant risks and benefits were discussed with the patient/family/POA. Questions were solicited and answers provided to the satisfaction of the patient/family/POA.
[2024-08-31] MEDS: LACTATED RINGERS 1,000 ML 150 ML IV CONT (10:36)
--- NOTE | 2024-08-31 11:13 | PM.HPGS ---
History of Present Illness History of Present Illness Consent: Risks, benefits, and alternatives have been discussed and questions answered. Patient agrees to proceed with procedure. Chief complaint: GERD Narrative: Hector Reed is a 58 year old female with gerd on omeprazole, if she does not take medication then more symptomatic, had egd but years ago. Review of Systems Review of Systems: All systems reviewed & are unremarkable except as noted in HPI and below PMFSH Past Medical History Medical History (Updated 08/31/24 @ 11:14 by Kaiden Johnston MD) Anxiety GERD (gastroesophageal reflux disease) Social History Social History Smoking status: Never smoker Alcohol intake: never Substance use: current Substance use type: marijuana Other substance usage details: Takes THC for migraines Last use: 08/24/24 Living arrangements: with family Spiritual care concerns: No Meds Home Medications and Allergies Home Medications ?Medication ?Instructions ?Recorded ?Confirmed ?Type ashwagandha extract 120 mg capsule 400 mg PO DAILY 08/28/24 08/31/24 History buspirone 10 mg tablet 10 mg PO BID 08/28/24 08/31/24 History diclofenac potassium 50 mg oral 50 mg PO ONCE 08/28/24 08/31/24 History powder packet ([facility]) omeprazole 20 mg capsule,delayed 20 mg PO DAILY 08/28/24 08/31/24 History release ondansetron 4 mg disintegrating 4 mg PO DAILY PRN nausea and 08/28/24 08/28/24 History tablet vomiting venlafaxine 37.5 mg 37.5 mg PO DAILY 08/28/24 08/31/24 History capsule,extended release 24 hr venlafaxine 75 mg capsule,extended 75 mg PO DAILY 08/28/24 08/31/24 History release 24 hr zolpidem 5 mg tablet 5 mg PO DAILY PRN insomnia 08/28/24 08/28/24 History Allergies Allergy/AdvReac Type Severity Reaction Status Date / Time prochlorperazine (From AdvReac Muscle Pain Verified 08/31/24 10:22 Compazine) Vital Signs Vital Signs - 24 hr 08/31/24 10:24 Temperature 97 F L Pulse Rate 77 Respiratory Rate 20 Blood Pressure 139/86 Pulse Oximetry 99 Oxygen Delivery Room Air Exam Const: General: comfortable and no acute distress HENMT: Face/Nose/Sinus: Normal nares present Eyes: General: appearance normal, both eyes and all related structures Neck: Neck: no JVD Resp: Auscultation: clear to auscultation bilaterally Cardio: Rate: regular rate Rhythm: regular rhythm GI: Inspection: non-distended GI Palp: Yes Soft to palpation Skin: General skin exam: normal color Neuro: General: gait normal Speech: normal speech Extrem: General: normal to inspection Psych: Mental Status: mental status grossly normal Assessment and Plan Assessment and plan (1) GERD (gastroesophageal reflux disease): Code(s): K21.9 - Gastro-esophageal reflux disease without esophagitis Status: Acute Assessment and Plan: egd with bx
[2024-08-31 11:24] VITALS: BP 108/64; PULSE 74; RESP 18; O2SAT 100
[2024-08-31 11:34] VITALS: BP 108/69; PULSE 70; RESP 22; O2SAT 100
[2024-08-31 11:44] VITALS: BP 129/80; PULSE 68; RESP 23; O2SAT 100
--- NOTE | 2024-08-31 11:49 | SUR.PHASEII ---
Patient complaining of left eye irritation in post op. Dr. Love notified and orders received for corneal abrasion.
[2024-08-31] MEDS: PROPARACAINE HCL 0.5% 15 ML OPHTH SOLN 1 DROP EACH EYE (11:58)
[2024-08-31] MEDS: DICLOFENAC SODIUM 0.1% OPHTH SOLN 2.5 ML BOTTLE 1 DROP EACH EYE (12:07)
== END 2024-08-31 12:07 | disposition home or self-care (01) ==
PROVIDERS: PCP Physician Assistant; Referring Provider Physician Assistant; Visit Provider Internal Medicine Gastroenterology
PROC: 0DJ08ZZ Inspection of Upper Intestinal Tract, Via Natural or Artificial Opening Endoscopic (ICD-10-PCS; CPT 43239; principal; 2024-08-31 11:30)
DX: K21.00 Gastro-esophageal reflux disease with esophagitis, without bleeding (principal); F12.90 Cannabis use, unspecified, uncomplicated
CPT/HCPCS: 43239; 88305; A9270; J2003; J2704; J7120